=== PATIENT | male | born 1980 | race American Indian/Alaskan Native ===

== ENCOUNTER 2017-02-15 20:03 | Observation (INO) | payer MEDICAID, OTHER ==
[2017-02-15 20:03] VITALS: BMI 23.0
[2017-02-15] MEDS ORDERED: Multivitamin (MVI) 10 ML, Thiamine 100 MG, Folic Acid 1 MG in Sodium Chloride 0.9% 1,00... IV ONE (20:28)
--- NOTE | 2017-02-15 20:28 | ED PDOC ---
Arrival/HPI - General Historian: Patient - History of Present Illness Time/Duration: 1 week Context: Home <Thomas Fragoso - Last Filed: 02/15/17 23:57> <Elmer Jacques - Last Filed: 02/16/17 06:49> - General Chief Complaint: Alcohol Ingestion Time Seen by Provider: 02/15/17 20:25 - History of Present Illness Narrative History of Present Illness (Text): 02/15/17 20:28 This 36 yo male with pmh alcohol abuse, presents to this ED c/o nausea, vomiting x 1 day. Patient stated he started abusing alcohol x 7 days. Denies rectal bleeding, or hematemesis. Patient denies SI, HI, hallucination or paranoia. (Thomas Fragoso) Past Medical History - Provider Review Nursing Documentation Reviewed: Yes - Infectious Disease Hx of Infectious Diseases: None - Tetanus Immunization Tetanus Immunization: Unknown - Past Medical History Past Medical History: No Previous - Cardiac Hx Hypertension: Yes - Pulmonary Hx Tuberculosis: No - Neurological Hx Seizures: No - HEENT Hx HEENT Disorder: No - Renal Hx Renal Disorder: No - Endocrine/Metabolic Hx Endocrine Disorders: No - Hematological/Oncological Hx Cancer: No - Integumentary Hx Dermatological Disorder: No - Musculoskeletal/Rheumatological Hx Falls: No - Gastrointestinal Hx Gastrointestinal Disorders: No - Genitourinary/Gynecological Hx Sexually Transmitted Diseases: No - Psychiatric Hx Anxiety: Yes Hx Substance Use: No - Surgical History Hx Appendectomy: Yes - Anesthesia Hx Anesthesia: Yes Hx Anesthesia Reactions: No Hx Malignant Hyperthermia: No - Suicidal Assessment Feels Threatened In Home Enviroment: No <Thomas Fragoso - Last Filed: 02/15/17 23:57> Family/Social History - Physician Review Nursing Documentation Reviewed: Yes Family/Social History: No Known Family HX Smoking Status: Never Smoked Hx Alcohol Use: No (history of daily etoh/recent relapse) Hx Substance Use: No Hx Substance Use Treatment: No <Thomas Fragoso - Last Filed: 02/15/17 23:57> Allergies/Home Meds <Thomas Fragoso - Last Filed: 02/15/17 23:57> <Elmer Jacques - Last Filed: 02/16/17 06:49> Allergies/Adverse Reactions: Allergies No Known Allergies Allergy (Verified 02/15/17 20:16) Home Medications: Home Meds Medication Instructions Recorded Confirmed Cholecalciferol (Vitamin D3) 2,000 unit PO DAILY 01/17/17 02/15/17 [Vitamin D3] Cyanocobalamin [Vitamin B12 100 100 mcg PO DAILY 01/17/17 02/15/17 mcg Tab] Review of Systems - Review of Systems Constitutional: Normal. absent: Fatigue, Weight Change, Fevers Eyes: Normal ENT: Normal Respiratory: Normal. absent: SOB, Cough Cardiovascular: Normal. absent: Chest Pain, Palpitations Gastrointestinal: Nausea, Vomiting. absent: Abdominal Pain, Constipation, Diarrhea Genitourinary Male: Normal Musculoskeletal: Normal Skin: Normal Neurological: Normal Endocrine: Normal Hemo/Lymphatic: Normal Psychiatric: Normal <Thomas Fragoso P - Last Filed: 02/15/17 23:57> Vital Signs Temp Pulse Resp BP Pulse Ox 02/16/17 05:54 98.2 F 76 15 124/80 100 02/16/17 04:30 97.9 F 78 16 118/74 100 02/15/17 22:05 98 F 85 18 132/78 100 Medical Decision Making <Thomas Fragoso - Last Filed: 02/15/17 23:57> Re-evaluation Time: 06:45 Reassessment Condition: Re-examined, Improved <Elmer Jacques - Last Filed: 02/16/17 06:49> ED Course and Treatment: 02/15/17 22:41 (Thomas Fragoso P) - Medication Orders Current Medication Orders: Discontinued Medications Multivitamins/Vitamin C 10 ml/Thiamine HCl 100 mg/ Folic Acid 1 mg/ Sodium Chloride 1,011.2 mls @ 1,000 mls/hr IV .Q1H1M ONE Stop: 02/15/17 21:28 Last Admin: 02/15/17 21:40 Dose: 1,000 MLS/HR eMAR Start Stop Document 02/15/17 21:40 ELVIS (Rec: 02/15/17 21:41 ELVIS [id number]) Intravenous Solution Start Date 02/15/17 Start Time 20:45 End Date 02/15/17 End time 21:45 Total Infusion Time 60 Lorazepam (Ativan) 2 mg IVP ONCE ONE PRN Reason: Protocol Stop: 02/15/17 23:06 Last Admin: 02/15/17 23:37 Dose: 2 MG Behavioural Document 02/15/17 23:37 [facility] (Rec: 02/15/17 23:38 [id number] Maintenance Maintenance Dose No Nonmedicinal Nonmedicinal Interventions Activity Behavior Behavior for Medication: Anxiety IVP Administration Document 02/15/17 23:37 [facility] (Rec: 02/15/17 23:38 [id number] Charges for Administration # of IVP Administrations 1 Ondansetron HCl (Zofran Inj) 4 mg IVP STAT STA Stop: 02/15/17 20:30 Last Admin: 02/15/17 21:03 Dose: 4 MG IVP Administration Document 02/15/17 21:03 [facility] (Rec: 02/15/17 21:03 [id number] Charges for Administration # of IVP Administrations 1 Ondansetron HCl (Zofran Inj) 4 mg IVP STAT STA Stop: 02/15/17 23:06 Last Admin: 02/15/17 23:36 Dose: 4 MG IVP Administration Document 02/15/17 23:36 [facility] (Rec: 02/15/17 23:37 [id number]) Charges for Administration # of IVP Administrations 1 Ondansetron HCl (Zofran Inj) 4 mg IVP STAT STA Stop: 02/16/17 02:30 Last Admin: 02/16/17 06:10 Dose: 4 MG IVP Administration Document 02/16/17 06:10 [facility] (Rec: 02/16/17 06:11 [id number]) Charges for Administration # of IVP Administrations 1 ED OBSERVATION Date of observation admission: 02/15/17 Time of observation admission: 20:30 <Fragoso,Nahim P - Last Filed: 02/15/17 23:57> Discharge: Yes <Elmer Jacques - Last Filed: 02/16/17 06:49> - Observation admission statement Patient is being placed in observation because:: Alcohol Intoxication (Fragoso,Nahim P) - Goals of Observation Goals of observation are:: Labs, IVF, revaluation (Fragoso,Nahim P) - PA / TANK CHARGER / Resident Statement MD/DO has reviewed & agrees with the documentation as recorded. <Elmer Jacques - Last Filed: 02/16/17 06:49> Disposition/Present on Arrival - Present on Arrival History of DVT/PE: No History of Uncontrolled Diabetes: No Urinary Catheter: No History of Decub. Ulcer: No History Surgical Site Infection Following: None <Thomas Fragoso - Last Filed: 02/15/17 23:57> - Present on Arrival Any Indicators Present on Arrival: No - Disposition Have Diagnosis and Disposition been Completed?: Yes Disposition Time: 06:48 <Elmer Jacques - Last Filed: 02/16/17 06:49> - Disposition Diagnosis: Alcohol dependence Disposition: HOME/ ROUTINE Patient Problems: Current Active Problems Problem Status Diagnosed Alcohol dependence Acute Condition: GOOD
[2017-02-15 21:12] LABS: HEMATOCRIT 45.9 % (42.0-52.0); MEAN CELL VOLUME 83.6 fL (80.0-105.0); MEAN CORPUSCULAR HEMOGLOBIN 30.4 pg (25.0-35.0); MEAN CORPUSCULAR HGB CONC 36.4 g/dl (31.0-37.0); MEAN PLATELET VOLUME 8.6 fl (7.0-11.0); PLATELET COUNT 278 10^3/uL (120.0-450.0); RED CELL DISTRIBUTION WIDTH 13.3 % (11.5-14.5); WHITE BLOOD COUNT 7.6 10^3/ul (4.5-11.0)
[2017-02-15 21:14] LABS: ADD MANUAL DIFF? YES
[2017-02-15 21:18] LABS: ALKALINE PHOSPHATASE 68 U/L (38-133); ALT/SGPT 46 U/L (7-56); AST/SGOT 96 U/L (15-59); BILIRUBIN,TOTAL 1.1 mg/dL (0.2-1.3); BLOOD UREA NITROGEN 14 mg/dL (7-21); CALCIUM 8.7 mg/dL (8.4-10.5); CARBON DIOXIDE 24 mmol/L (21-33); CHLORIDE 101 mmol/L (98-107); GFR AFRICAN-AMERICAN > 60; GLUCOSE,RANDOM 106 mg/dL (70-110); LIPASE 192 U/L (23-300); SODIUM 144 mmol/L (132-148); TOTAL PROTEIN 8.5 g/dL (5.8-8.3)
[2017-02-15 21:19] LABS: POTASSIUM 4.5 mmol/L (3.6-5.0)
[2017-02-15 22:03] LABS: NEUTROPHIL 18 % (50.0-70.0); PLATELET ESTIMATE NORMAL (NORMAL)
[2017-02-15 22:06] VITALS: O2SAT 100
[2017-02-16 05:54] VITALS: BP 124/80; PULSE 76; RESP 15; TEMP 98.2
== END 2017-02-16 06:59 | disposition home or self-care (01) ==
LOC: ED 20:03 → EROBSV 20:30
PROVIDERS: ADMIT Emergency Medicine; ATTEND Emergency Medicine
DX: F10.20 Alcohol dependence, uncomplicated (principal); Y90.8 Blood alcohol level of 240 mg/100 ml or more; I10 Essential (primary) hypertension
CPT/HCPCS: 80053; 80320; 83690; 85025; 96365; 96375; 96376; 99283; G0378; J2060; J2405; J3411; J7040

== ENCOUNTER 2017-02-24 10:32 | Emergency (ER) | payer OTHER ==
[2017-02-24 10:33] VITALS: BMI 23.0
[2017-02-24 10:57] VITALS: TEMP 97.9
[2017-02-24] MEDS ORDERED: Sodium Chloride 0.9% 1,000 ML IV STA (11:11)
--- NOTE | 2017-02-24 11:14 | ED PDOC ---
Arrival/HPI - General Chief Complaint: Abdominal Pain Time Seen by Provider: 02/24/17 11:02 Historian: Patient - History of Present Illness Narrative History of Present Illness (Text): 02/24/17 11:08 A 36 year old male, whose past medical history includes alcohol abuse, presents to the emergency department complaining of left flank pain radiating to the left lower abdominal quadrant that began 3 days ago. Pain is associated with hiccups, nausea, vomiting and dysuira. He denies any fever, chest pain, shortness of breath, other other complaints at this time. Patient admits to drinking last night. PMD: Dr. Joseph Time/Duration: Other (3 days) Symptom Onset: Sudden Symptom Course: Unchanged Quality: Other ("pain") Activities at Onset: Rest Modifying Factors (Text): none Context: Home Associated Symptoms (Text): hiccups, nausea, vomiting, and dysuria. Past Medical History - Provider Review Nursing Documentation Reviewed: Yes - Infectious Disease Hx of Infectious Diseases: None - Tetanus Immunization Tetanus Immunization: Unknown - Past Medical History Past Medical History: No Previous - Cardiac Hx Cardiac Disorders: Yes Hx Hypertension: Yes - Pulmonary Hx Respiratory Disorders: No Hx Tuberculosis: No - Neurological Hx Neurological Disorder: No Hx Seizures: No - HEENT Hx HEENT Disorder: No - Renal Hx Renal Disorder: Yes Hx Renal Failure: Yes - Endocrine/Metabolic Hx Endocrine Disorders: No - Hematological/Oncological Hx Blood Disorders: No Hx Cancer: No - Integumentary Hx Dermatological Disorder: No - Musculoskeletal/Rheumatological Hx Falls: No - Gastrointestinal Hx Gastrointestinal Disorders: Yes - Genitourinary/Gynecological Hx Genitourinary Disorders: No Hx Sexually Transmitted Diseases: No - Psychiatric Hx Psychophysiologic Disorder: Yes Hx Anxiety: Yes Hx Substance Use: No - Surgical History Hx Appendectomy: Yes Hx Gastric Bypass Surgery: Yes Other/Comment: hernia - Anesthesia Hx Anesthesia: Yes Hx Anesthesia Reactions: No Hx Malignant Hyperthermia: No - Suicidal Assessment Feels Threatened In Home Enviroment: No Family/Social History - Physician Review Nursing Documentation Reviewed: Yes Family/Social History: Unknown Family HX Smoking Status: Never Smoked Hx Alcohol Use: Yes Frequency of alcohol use: Daily Hx Substance Use: No Hx Substance Use Treatment: No Allergies/Home Meds Allergies/Adverse Reactions: Allergies sesame seed Allergy (Verified 02/24/17 10:54) ANAPHYLAXIS hummus Allergy (Uncoded 02/24/17 10:54) ANAPHYLAXIS Home Medications: Home Meds Medication Instructions Recorded Confirmed Dicyclomine [Bentyl] 10 mg PO BID 02/24/17 02/24/17 Review of Systems - Physician Review All systems were reviewed & negative as marked: Yes - Review of Systems Constitutional: absent: Fevers Gastrointestinal: Abdominal Pain, Nausea, Other (hiccups). absent: Vomiting Genitourinary Male: Dysuria Musculoskeletal: Back Pain (left flank) Physical Exam Vital Signs Reviewed: Yes Vital Signs Temp Pulse Resp BP Pulse Ox 02/24/17 12:33 91 H 16 110/63 96 02/24/17 10:54 97.9 F 92 H 17 109/69 98 Temperature: Afebrile Blood Pressure: Normal Pulse: Regular Respiratory Rate: Normal Appearance: Positive for: Well-Appearing, Non-Toxic, Comfortable Pain Distress: None Mental Status: Positive for: Alert and Oriented X 3 - Systems Exam Head: Present: Atraumatic, Normocephalic Pupils: Present: PERRL Extroacular Muscles: Present: EOMI Conjunctiva: Present: Normal Mouth: Present: Moist Mucous Membranes Neck: Present: Normal Range of Motion Respiratory/Chest: Present: Clear to Auscultation, Good Air Exchange. No: Respiratory Distress, Accessory Muscle Use Cardiovascular: Present: Regular Rate and Rhythm, Normal S1, S2. No: Murmurs Abdomen: Present: Normal Bowel Sounds. No: Tenderness, Distention, Peritoneal Signs, Rebound, Guarding Back: Present: CVA Tenderness (left) Upper Extremity: Present: Normal Inspection. No: Cyanosis, Edema Lower Extremity: Present: Normal Inspection. No: Edema Neurological: Present: GCS=15, CN II-XII Intact, Speech Normal Skin: Present: Warm, Dry, Normal Color. No: Rashes Psychiatric: Present: Alert, Oriented x 3, Normal Insight, Normal Concentration Medical Decision Making ED Course and Treatment: 02/24/17 11:08 Impression: A 36 year old male with left flank pain. Differential Diagnosis include but are not limited to: nephrolithiasis vs uti pyelo sv gastritis. Plan: -- Abdomen/Pelvis CT -- Labs -- Urinalysis -- Thorazine and IV Fluids -- Reassess and disposition Prior Visits: Notes and results from previous visits were reviewed. The patient last presented to the emergency department on 02/15/17 for evaluation of nausea and vomiting. Progress Notes: 02/24/17 12:50 Abdomen/Pelvis CT: Creator : Mahin Matos MD COMPARISON: 09/08/2013 and 12/14/2015 FINDINGS: LOWER THORAX: Suture lines are seen in the stomach LIVER: Unremarkable. No gross lesion or ductal dilatation. GALLBLADDER AND BILE DUCTS: Unremarkable. PANCREAS: Unremarkable. No gross lesion or ductal dilatation. SPLEEN: Unremarkable. ADRENALS: Unremarkable. No mass. 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 There are no stones visualized. VASCULATURE: Unremarkable. No aortic aneurysm. BOWEL: Unremarkable. No obstruction. No gross mural thickening. APPENDIX: Unremarkable. Normal appendix. PERITONEUM: Unremarkable. No free fluid. No free air. LYMPH NODES: Unremarkable. No enlarged lymph nodes. BLADDER: Unremarkable. REPRODUCTIVE: Unremarkable. BONES: No acute fracture. OTHER FINDINGS: None. IMPRESSION: Chronic left UPJ obstruction. No evidence of renal or ureteral stones 02/24/17 14:59 pain resolved. pt on phone in [place]. due for surgery to left kidney [place] as per pt at [facility]. pt poor historian. cannot elaborate further on his procedure. h/h baseline. no reported gi bleeding. advise outpt f/u 02/24/17 15:02 hicups resolved in er. 02/24/17 15:18 - Lab Interpretations Lab Results: 02/24/17 11:20 02/24/17 11:20 Lab Results 02/24/17 14:24: Urine Color Light yellow, Urine Appearance Clear, Urine pH 6.0, Ur Specific [place] 1.010, Urine Protein Negative, Urine Glucose (UA) Negative, Urine Ketones Negative, Urine Blood Trace-intact H, Urine Nitrate Negative, Urine Bilirubin Negative, Urine Urobilinogen 0.2, Ur Leukocyte Esterase Negative , Urine RBC 0 - 2, Urine WBC 0 - 2, Ur Epithelial Cells 0 - 2, Urine Bacteria Neg 02/24/17 11:20: WBC 4.4 L D, RBC 4.21, Hgb 12.7 L, Hct 36.6 L, MCV 86.9, MCH 30.2, MCHC 34.7, RDW 14.0, Plt Count 193, MPV 9.0, Gran % 32.0 L, Lymph % (Auto ) 57.7 H, [place] % (Auto) 8.0 H, Eos % (Auto) 1.8, Baso % (Auto) 0.5, Gran # 1.40 , Lymph # 2.5, [place] # 0.4, Eos # 0.1, Baso # 0.02, PT 11.2, INR 1.04, APTT 27.3 , Sodium 141, Potassium 4.4, Chloride 103, Carbon Dioxide 27, Anion Gap 15, BUN 11, Creatinine 0.8, Est GFR ( Amer) > 60, Est GFR (Non-Af Amer) > 60, Random Glucose 95, Calcium 8.6, Total Bilirubin 0.3, AST 51, ALT 54, Alkaline Phosphatase 43, Total Protein 7.1, Albumin 3.7, Globulin 3.4, Albumin/Globulin Ratio 1.1, Lipase 154, Alcohol, Quantitative 137 H I have reviewed the lab results: Yes - RAD Interpretation Radiology Orders: 02/24/17 11:11 ABD & PELVIS W/O PO OR IV CONT [CT] Stat - Medication Orders Current Medication Orders: Discontinued Medications Chlorpromazine (Thorazine) 25 mg PO ONCE STA PRN Reason: Protocol Stop: 02/24/17 11:13 Last Admin: 02/24/17 11:40 Dose: 25 MG Behavioural Document 02/24/17 11:40 JOL (Rec: 02/24/17 11:40 JOL [id number]) Maintenance Maintenance Dose No Nonmedicinal Nonmedicinal Interventions Give food/fluids Behavior Behavior for Medication: Anxiety Behavior Comment hiccups Sodium Chloride (Sodium Chloride 0.9%) 1,000 mls @ 1,000 mls/hr IV .Q1H STA Stop: 02/24/17 12:10 Last Admin: 02/24/17 11:32 Dose: 1,000 MLS/HR eMAR Start Stop Document 02/24/17 11:32 JOL (Rec: 02/24/17 11:32 JOL [id number]) Intravenous Solution Start Date 02/24/17 Start Time 11:32 End Date 02/24/17 End time 12:32 Total Infusion Time 60 Morphine Sulfate (Morphine) 4 mg IVP STAT STA Stop: 02/24/17 11:27 Last Admin: 02/24/17 11:40 Dose: 4 MG MAR Pain Assessment Document 02/24/17 11:40 JOL (Rec: 02/24/17 11:40 JOL [id number]) Pain Reassessment Is this a pain reassessment? No Sleep Is patient sleeping during reassessment? No Presence of Pain Presence of Pain Yes Pain Scale Used Pain Scale Used Numeric Location Pain Location Body Site Abdomen Description Intensity of Pain at present 6 IVP Administration Document 02/24/17 11:40 JOL (Rec: 02/24/17 11:40 JOL [id number]) Charges for Administration # of IVP Administrations 1 - Scribe Statement The provider has reviewed the documentation as recorded by the Scribe Tha Hu Provider Scribe Attestation: All medical record entries made by the Scribe were at my direction and personally dictated by me. I have reviewed the chart and agree that the record accurately reflects my personal performance of the history, physical exam, medical decision making, and the department course for this patient. I have also personally directed, reviewed, and agree with the discharge instructions and disposition. Disposition/Present on Arrival - Present on Arrival Any Indicators Present on Arrival: No History of DVT/PE: No History of Uncontrolled Diabetes: No Urinary Catheter: No History of Decub. Ulcer: No History Surgical Site Infection Following: None - Disposition Have Diagnosis and Disposition been Completed?: Yes Diagnosis: Abdominal pain, Hiccups Disposition: HOME/ ROUTINE Disposition Time: 15:00 Patient Problems: Current Active Problems Problem Status Diagnosed Abdominal pain Acute Hiccups Acute Condition: STABLE Discharge Instructions (ExitCare): Hiccups (ED), Acute Abdominal Pain (ED), Abuse of Alcohol (ED) Additional Instructions: please follow up with your doctor. return to er with worsening symptoms or concerns Prescriptions: Famotidine [Pepcid] 20 mg PO DAILY #20 tab chlorproMAZINE [Thorazine] 25 mg PO TID PRN #6 tab PRN Reason: Hiccups Referrals: Jaison Joseph MD [Primary Care Provider] - Follow up with primary [facility] [Outside] - Follow up with primary [facility] [Outside] - Follow up with primary [facility] [Outside] - Follow up with primary
[2017-02-24] MEDS ORDERED: Morphine 4 mg/ml ISec IVP STA (11:26)
[2017-02-24 11:28] LABS: ADD MANUAL DIFF? NO
[2017-02-24 11:36] LABS: BASO # 0.02 K/mm3 (0.0-2.0); BASO % 0.5 % (0.0-3.0); EOS # 0.1 (0.0-0.7); EOS % 1.8 % (1.5-5.0); HEMATOCRIT 36.6 % (42.0-52.0); LYMPH # 2.5 (1.2-3.4); LYMPH % 57.7 % (22.0-35.0); MEAN CELL VOLUME 86.9 fL (80.0-105.0); MEAN CORPUSCULAR HEMOGLOBIN 30.2 pg (25.0-35.0); MEAN CORPUSCULAR HGB CONC 34.7 g/dl (31.0-37.0); MONO # 0.4 (0.1-0.6); PLATELET COUNT 193 10^3/uL (120.0-450.0); WHITE BLOOD COUNT 4.4 10^3/ul (4.5-11.0)
[2017-02-24 11:44] LABS: ALB/GLOB RATIO 1.1 (1.1-1.8); ALKALINE PHOSPHATASE 43 U/L (38-133); ALT/SGPT 54 U/L (7-56); AST/SGOT 51 U/L (15-59); BILIRUBIN,TOTAL 0.3 mg/dL (0.2-1.3); BLOOD UREA NITROGEN 11 mg/dL (7-21); CALCIUM 8.6 mg/dL (8.4-10.5); CARBON DIOXIDE 27 mmol/L (21-33); CHLORIDE 103 mmol/L (95-110); GFR AFRICAN-AMERICAN > 60; GLUCOSE,RANDOM 95 mg/dL (70-110); LIPASE 154 U/L (23-300); POTASSIUM 4.4 mmol/L (3.6-5.0); SODIUM 141 mmol/L (132-148); TOTAL PROTEIN 7.1 g/dL (5.8-8.3)
[2017-02-24 11:46] LABS: INR 1.04 (0.93-1.08); PARTIAL THROMBOPLASTIN TIME 27.3 Seconds (23.7-30.8)
--- NOTE | 2017-02-24 12:50 | CT ---
PROCEDURE: CT Abdomen and Pelvis without intravenous contrast HISTORY: left flank pain COMPARISON: 09/08/2013 and 12/14/2015 TECHNIQUE: Without contrast. Contrast Dose: Radiation dose: Total exam DLP = 804 mGy-cm. This CT exam was performed using one or more of the following dose reduction techniques: Automated exposure control, adjustment of the mA and/or kV according to patient size, and/or use of iterative reconstruction technique. FINDINGS: LOWER THORAX: Suture lines are seen in the stomach LIVER: Unremarkable. No gross lesion or ductal dilatation. GALLBLADDER AND BILE DUCTS: Unremarkable. PANCREAS: Unremarkable. No gross lesion or ductal dilatation. SPLEEN: Unremarkable. ADRENALS: Unremarkable. No mass. 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 There are no stones visualized. VASCULATURE: Unremarkable. No aortic aneurysm. BOWEL: Unremarkable. No obstruction. No gross mural thickening. APPENDIX: Unremarkable. Normal appendix. PERITONEUM: Unremarkable. No free fluid. No free air. LYMPH NODES: Unremarkable. No enlarged lymph nodes. BLADDER: Unremarkable. REPRODUCTIVE: Unremarkable. BONES: No acute fracture. OTHER FINDINGS: None. IMPRESSION: Chronic left UPJ obstruction. No evidence of renal or ureteral stones
[2017-02-24 14:44] LABS: URINE BILIRUBIN NEGATIVE (NEGATIVE); URINE BLOOD TRACE-INTACT (NEGATIVE); URINE GLUCOSE (UA) NEGATIVE (NEGATIVE); URINE KETONE NEGATIVE (NEGATIVE); URINE LEUKOCYTE ESTERASE NEGATIVE Leu/uL (NEGATIVE); URINE PROTEIN NEGATIVE mg/dL (<30 mg/dL); URINE UROBILINOGEN 0.2 E.U./dL (<1 E.U./dL)
[2017-02-24 14:45] LABS: URINE APPEARANCE CLEAR (CLEAR); URINE COLOR LIGHT YELLOW (YELLOW)
[2017-02-24 14:58] LABS: URINE BACTERIA NEG (NEG); URINE EPITHELIAL CELLS 0 - 2 /hpf (0-5); URINE RBC 0 - 2 /hpf (0-2); URINE WBC 0 - 2 /hpf (0-6)
[2017-02-24 16:14] VITALS: BP 120/63; PULSE 76; RESP 18; O2SAT 98
== END 2017-02-24 16:01 | disposition home or self-care (01) ==
LOC: ED 10:32
DX: R10.9 Unspecified abdominal pain (principal); R06.6 Hiccough; I10 Essential (primary) hypertension
CPT/HCPCS: 74176; 80053; 80320; 81001; 83690; 85025; 85610; 85730; 96361; 96374; 99284; J2270; J7040; Q0161

== ENCOUNTER 2017-03-06 17:52 | Inpatient (IN) | payer OTHER ==
[2017-03-06 18:14] VITALS: BMI 23.7
[2017-03-06] MEDS ORDERED: Sodium Chloride 0.9% 1,000 ML IV STA ×2 (18:26→21:22)
--- NOTE | 2017-03-06 18:55 | ED PDOC ---
Arrival/HPI - General Chief Complaint: Abdominal Pain Time Seen by Provider: 03/06/17 18:19 Historian: Patient - History of Present Illness Narrative History of Present Illness (Text): 03/06/17 18:41 36yo male with history of alcohol abuse present with complaint of LLQ abdominal pain with associated multiple episodes of nonbilious/bloody vomiting since last night. He notes that he last drank last night, but usually drink alcohol everyday. Report history of similar pain multiple times in the past. He denies diarrhea, constipation, hematemesis, hematochezia, fever, chills, any other complaint. He notes history of gastric bypass years ago. Past Medical History - Provider Review Nursing Documentation Reviewed: Yes - Infectious Disease Hx of Infectious Diseases: None - Tetanus Immunization Tetanus Immunization: Unknown - Past Medical History Past Medical History: No Previous - Cardiac Hx Cardiac Disorders: Yes Hx Hypertension: Yes - Pulmonary Hx Respiratory Disorders: No Hx Tuberculosis: No - Neurological Hx Neurological Disorder: No Hx Seizures: No - HEENT Hx HEENT Disorder: No - Renal Hx Renal Disorder: Yes Hx Renal Failure: Yes - Endocrine/Metabolic Hx Endocrine Disorders: No - Hematological/Oncological Hx Blood Disorders: No Hx Cancer: No - Integumentary Hx Dermatological Disorder: No - Musculoskeletal/Rheumatological Hx Falls: No - Gastrointestinal Hx Gastrointestinal Disorders: Yes - Genitourinary/Gynecological Hx Genitourinary Disorders: No Hx Sexually Transmitted Diseases: No - Psychiatric Hx Psychophysiologic Disorder: Yes Hx Anxiety: Yes Hx Substance Use: No - Surgical History Hx Appendectomy: Yes Hx Gastric Bypass Surgery: Yes Other/Comment: hernia - Anesthesia Hx Anesthesia: Yes Hx Anesthesia Reactions: No Hx Malignant Hyperthermia: No - Suicidal Assessment Feels Threatened In Home Enviroment: No Family/Social History - Physician Review Nursing Documentation Reviewed: Yes Family/Social History: Unknown Family HX Smoking Status: Never Smoked Hx Alcohol Use: Yes Hx Substance Use: No Hx Substance Use Treatment: No Allergies/Home Meds Allergies/Adverse Reactions: Allergies sesame seed Allergy (Verified 02/24/17 10:54) ANAPHYLAXIS hummus Allergy (Uncoded 02/24/17 10:54) ANAPHYLAXIS Home Medications: Home Meds Medication Instructions Recorded Confirmed Dicyclomine [Bentyl] 10 mg PO BID 02/24/17 02/24/17 Review of Systems - Physician Review All systems were reviewed & negative as marked: Yes - Review of Systems Constitutional: Normal Eyes: Normal ENT: Normal Respiratory: Normal Cardiovascular: Normal Gastrointestinal: Abdominal Pain, Nausea, Vomiting. absent: Constipation, Diarrhea, Hematochezia, Hematemesis Genitourinary Male: Normal Musculoskeletal: Normal Skin: Normal Neurological: Normal Endocrine: Normal Hemo/Lymphatic: Normal Psychiatric: Normal Physical Exam Vital Signs Reviewed: Yes Vital Signs Temp Pulse Resp BP Pulse Ox 03/06/17 18:18 98.5 F 136 H 18 124/87 98 03/06/17 18:13 98.5 F 136 H 20 124/87 98 Temperature: Afebrile Blood Pressure: Normal Pulse: Regular Respiratory Rate: Normal Appearance: Positive for: Well-Appearing, Non-Toxic, Comfortable Pain Distress: None Mental Status: Positive for: Alert and Oriented X 3 - Systems Exam Head: Present: Atraumatic, Normocephalic Pupils: Present: PERRL Extroacular Muscles: Present: EOMI Conjunctiva: Present: Normal Mouth: Present: Moist Mucous Membranes Neck: Present: Normal Range of Motion Respiratory/Chest: Present: Clear to Auscultation, Good Air Exchange. No: Respiratory Distress, Accessory Muscle Use Cardiovascular: Present: Regular Rate and Rhythm, Normal S1, S2. No: Murmurs Abdomen: Present: Tenderness (Left sided lower tenderness), Normal Bowel Sounds , Other (Soft). No: Distention, Peritoneal Signs, Rebound, Guarding, McBurney' s Point Tender, Rovsing's Sign Present Back: Present: Normal Inspection Upper Extremity: Present: Normal Inspection. No: Cyanosis, Edema Lower Extremity: Present: Normal Inspection. No: Edema Neurological: Present: GCS=15, CN II-XII Intact, Speech Normal Skin: Present: Warm, Dry, Normal Color. No: Rashes Psychiatric: Present: Alert, Oriented x 3, Normal Insight, Normal Concentration Medical Decision Making ED Course and Treatment: 03/06/17 21:20 Pt in ED for stated history. His pain is controlled in ED. Lab was reviewed with elevated Lipase and alcohol noted. Pt was admitted for Pancreatitis. Pt getting hydration in ED. Case was DW Dr. tabor and he accepted pt to his service. Requested Dr. Mendieta consult. - Lab Interpretations Lab Results: 03/06/17 18:50 03/06/17 18:50 Lab Results 03/06/17 18:52: Urine Color Yellow, Urine Appearance Sl cloudy, Urine pH 6.0, Ur Specific Bon[place] >= 1.030, Urine Protein 30 H, Urine Glucose (UA) 100 H, Urine Ketones Trace H, Urine Blood Moderate H, Urine Nitrate Negative, Urine Bilirubin Negative, Urine Urobilinogen 0.2, Ur Leukocyte Esterase Negative, Urine RBC 5 - 10, Urine WBC 0 - 2, Ur Epithelial Cells 0 - 2, Urine Bacteria Neg 03/06/17 18:50: WBC 9.5 D, RBC 5.34, Hgb 16.6, Hct 45.1, MCV 84.5, MCH 31.1, MCHC 36.8, RDW 14.7 H, Plt Count 265, MPV 8.7, Gran % 80.1 H, Lymph % (Auto) 16.5 L, Dyer % (Auto) 3.2, Eos % (Auto) 0.0 L, Baso % (Auto) 0.2, Gran # 7.63 H , Lymph # 1.6, Dyer # 0.3, Eos # 0.0, Baso # 0.02, PT 10.7, INR 0.99, APTT 27.8 , Sodium 136, Potassium 4.4, Chloride 96 L, Carbon Dioxide 20 L, Anion Gap 24 H , BUN 16, Creatinine 0.9, Est GFR ( Amer) > 60, Est GFR (Non-Af Amer) > 60, Random Glucose 173 H, Calcium 8.8, Total Bilirubin 0.8, AST 66 H, ALT 48, Alkaline Phosphatase 69, Total Protein 8.3, Albumin 4.0, Globulin 4.3, Albumin/ Globulin Ratio 0.9 L, Lipase 1017 H, Alcohol, Quantitative 249 H - Medication Orders Current Medication Orders: Discontinued Medications Famotidine (Pepcid) 20 mg IVP STAT STA Stop: 03/06/17 18:27 Last Admin: 03/06/17 19:02 Dose: 20 MG IVP Administration Document 03/06/17 19:02 OCS (Rec: 03/06/17 19:03 OCS [id number]) Charges for Administration # of IVP Administrations 1 Sodium Chloride (Sodium Chloride 0.9%) 1,000 mls @ 1,000 mls/hr IV .Q1H STA Stop: 03/06/17 19:25 Last Admin: 03/06/17 19:03 Dose: 1,000 MLS/HR eMAR Start Stop Document 03/06/17 19:03 OCS (Rec: 03/06/17 19:03 [id number]) Intravenous Solution Start Date 03/06/17 Start Time 19:03 Ketorolac Tromethamine (Toradol) 30 mg IVP STAT STA Stop: 03/06/17 19:02 Last Admin: 03/06/17 19:20 Dose: 30 MG IVP Administration Document 03/06/17 19:20 OCS (Rec: 03/06/17 19:20 [id number]) Charges for Administration # of IVP Administrations 1 Ondansetron HCl (Zofran Inj) 4 mg IVP STAT STA Stop: 03/06/17 18:27 Last Admin: 03/06/17 19:03 Dose: 4 MG IVP Administration Document 03/06/17 19:03 OCS (Rec: 03/06/17 19:03 [id number]) Charges for Administration # of IVP Administrations 1 Disposition/Present on Arrival - Present on Arrival Any Indicators Present on Arrival: No History of DVT/PE: No History of Uncontrolled Diabetes: No Urinary Catheter: No History of Decub. Ulcer: No History Surgical Site Infection Following: None - Disposition Have Diagnosis and Disposition been Completed?: Yes Diagnosis: Pancreatitis, Alcohol dependence Disposition: HOSPITALIZED Disposition Time: 19:50 Patient Problems: Current Active Problems Problem Status Diagnosed Pancreatitis Acute Condition: FAIR
[2017-03-06 18:57] LABS: URINE APPEARANCE SL CLOUDY (CLEAR); URINE BILIRUBIN NEGATIVE (NEGATIVE); URINE BLOOD MODERATE (NEGATIVE); URINE COLOR YELLOW (YELLOW); URINE GLUCOSE (UA) 100 mg/dL (NEGATIVE); URINE KETONE TRACE mg/dL (NEGATIVE); URINE LEUKOCYTE ESTERASE NEGATIVE Leu/uL (NEGATIVE); URINE PROTEIN 30 mg/dL (<30 mg/dL); URINE UROBILINOGEN 0.2 E.U./dL (<1 E.U./dL)
[2017-03-06 18:59] LABS: URINE BACTERIA NEG (NEG); URINE EPITHELIAL CELLS 0 - 2 /hpf (0-5); URINE WBC 0 - 2 /hpf (0-6)
[2017-03-06 19:02] LABS: ADD MANUAL DIFF? NO
[2017-03-06 19:17] LABS: ALB/GLOB RATIO 0.9 (1.1-1.8); ALKALINE PHOSPHATASE 69 U/L (38-133); ALT/SGPT 48 U/L (7-56); AST/SGOT 66 U/L (15-59); BILIRUBIN,TOTAL 0.8 mg/dL (0.2-1.3); BLOOD UREA NITROGEN 16 mg/dL (7-21); CALCIUM 8.8 mg/dL (8.4-10.5); CARBON DIOXIDE 20 mmol/L (21-33); CHLORIDE 96 mmol/L (98-107); GFR AFRICAN-AMERICAN > 60; GLUCOSE,RANDOM 173 mg/dL (70-110); LIPASE 1017 U/L (23-300); POTASSIUM 4.4 mmol/L (3.6-5.0); SODIUM 136 mmol/L (132-148); TOTAL PROTEIN 8.3 g/dL (5.8-8.3)
[2017-03-06 19:24] LABS: BASO # 0.02 K/mm3 (0.0-2.0); BASO % 0.2 % (0.0-3.0); GRAN # 7.63 (1.4-6.5); GRAN % 80.1 % (50.0-68.0); HEMATOCRIT 45.1 % (42.0-52.0); LYMPH # 1.6 (1.2-3.4); LYMPH % 16.5 % (22.0-35.0); MEAN CELL VOLUME 84.5 fL (80.0-105.0); MEAN CORPUSCULAR HEMOGLOBIN 31.1 pg (25.0-35.0); MEAN CORPUSCULAR HGB CONC 36.8 g/dl (31.0-37.0); MEAN PLATELET VOLUME 8.7 fl (7.0-11.0); MONO # 0.3 (0.1-0.6); MONO % 3.2 % (1.0-6.0); PLATELET COUNT 265 10^3/uL (120.0-450.0); RED CELL DISTRIBUTION WIDTH 14.7 % (11.5-14.5); WHITE BLOOD COUNT 9.5 10^3/ul (4.5-11.0)
[2017-03-06 19:25] LABS: INR 0.99 (0.93-1.08); PARTIAL THROMBOPLASTIN TIME 27.8 Seconds (23.7-30.8)
--- NOTE | 2017-03-06 23:56 | CP.PCM.PN ---
Subjective - Date & Time of Evaluation Date of Evaluation: 03/06/17 Time of Evaluation: 23:55 - Subjective Subjective: Patient was seen at bedside.He complained of abdominal pain, sharp across upper abdomen, no radiation. Has little nausea, no vomiting. States that he is very thirsty. No other complaints. Denies chest pain, sob, sweating, palpitation. This 36 year old male was admitted with LLQ pain, vomiting, ETOH intoxication,elevated lipase. Has PMH of HTN, renal failure, Pancreatitis,ETOH withdrawal, ruptured appendix. Objective - Vital Signs/Intake and Output Vital Signs (last 24 hours): Temp Pulse Resp BP Pulse Ox 98.5 F 103 H 18 132/89 97 03/06/17 18:18 03/06/17 21:00 03/06/17 21:00 03/06/17 21:00 03/06/17 21:00 - Labs Labs: PT 10.7 Seconds (9.9-11.8) 03/06/17 18:50 INR 0.99 (0.93-1.08) 03/06/17 18:50 APTT 27.8 Seconds (23.7-30.8) 03/06/17 18:50 - Constitutional Appears: Well, No Acute Distress - Head Exam Head Exam: ATRAUMATIC, NORMAL INSPECTION, NORMOCEPHALIC - Eye Exam Eye Exam: Normal appearance - ENT Exam ENT Exam: Normal External Ear Exam - Neck Exam Neck Exam: Normal Inspection - Respiratory Exam Respiratory Exam: Clear to Ausculation Bilateral, NORMAL BREATHING PATTERN. absent: Accessory Muscle Use, Rales, Rhonchi, Wheezes, Respiratory Distress, Stridor - GI/Abdominal Exam GI & Abdominal Exam: Soft (YEs.), Tenderness (Mild upper abdominal tenderness positive.), Normal Bowel Sounds. absent: Firm, Guarding, Rigid, Organomegaly, Pulsatile Mass, Rebound - Rectal Exam Rectal Exam: Deferred - Extremities Exam Extremities Exam: Normal Inspection - Back Exam Back Exam: NORMAL INSPECTION - Neurological Exam Neurological Exam: Alert, Oriented x3 - Psychiatric Exam Psychiatric exam: Normal Affect, Normal Mood - Skin Skin Exam: Dry Assessment and Plan - Assessment and Plan (Free Text) Assessment: A/P:Abdominal pain-UpPer. Vomiting. ETOH. Pancreatitis. Toradol 30 mg IV stat. Continue present management.
[2017-03-07] MEDS ORDERED: Sodium Chloride 0.9% 1,000 ML IV SCH (03:30)
[2017-03-07] MEDS ORDERED: HYDROmorphone 0.5 mg/0.5 ml ISec IVP PRN (05:11)
--- NOTE | 2017-03-07 05:49 | CP.PCM.CON ---
History of Present Illness - History of Present Illness History of Present Illness: Surgery consult 36yo male with history of Pancreatitis, alcohol abuse, L hydronephrosis, appendectomy, gastric bypass, hernia repair present with complaint of LLQ abdominal pain with associated multiple episodes of nonbilious/bloody vomiting since last night. He notes that he last drank last night, but usually drink alcohol everyday. Report history of similar pain multiple times in the past. He also resports anorexia, diarrhea and dysuria. Denies constipation, hematemesis , hematochezia, fever, chills, hematuria, any other complaint. Review of Systems - Review of Systems Review of Systems: see HPI Past Patient History - Infectious Disease Hx of Infectious Diseases: None - Tetanus Immunizations Tetanus Immunization: Unknown - Past Medical History & Family History Past Medical History?: Yes - Past Social History Smoking Status: Never Smoked - CARDIAC Hx Cardiac Disorders: Yes Hx Hypertension: Yes - PULMONARY Hx Respiratory Disorders: No Hx Tuberculosis: No - NEUROLOGICAL Hx Neurological Disorder: No Hx Seizures: No - HEENT Hx HEENT Problems: No - RENAL Hx Chronic Kidney Disease: Yes Hx Renal Failure: Yes - ENDOCRINE/METABOLIC Hx Endocrine Disorders: No - HEMATOLOGICAL/ONCOLOGICAL Hx Blood Disorders: No Hx Cancer: No - INTEGUMENTARY Hx Dermatological Problems: No - MUSCULOSKELETAL/RHEUMATOLOGICAL Hx Falls: No - GASTROINTESTINAL Hx Gastrointestinal Disorders: Yes - GENITOURINARY/GYNECOLOGICAL Hx Genitourinary Disorders: No Hx Sexually Transmitted Disorders: No - PSYCHIATRIC Hx Psychophysiologic Disorder: Yes Hx Anxiety: Yes - SURGICAL HISTORY Hx Appendectomy: Yes Hx Gastric Bypass Surgery: Yes Other/Comment: hernia - ANESTHESIA Hx Anesthesia: Yes Hx Anesthesia Reactions: No Hx Malignant Hyperthermia: No Meds Allergies/Adverse Reactions: Allergies Allergy/AdvReac Type Severity Reaction Status Date / Time sesame seed Allergy ANAPHYLAXIS Verified 02/24/17 10:54 hummus Allergy ANAPHYLAXIS Uncoded 02/24/17 10:54 - Medications Medications: Current Medications Acetaminophen (Tylenol 325mg Tab) 650 mg PO Q4H PRN PRN Reason: Fever >100.4 F Hydromorphone HCl (Dilaudid) 0.5 mg IVP Q6H PRN PRN Reason: Pain, severe (8-10) Sodium Chloride (Sodium Chloride 0.9%) 1,000 mls @ 100 mls/hr IV .Q10H ANEESH Lactated Ringer's (Lactated Ringer's) 1,000 mls @ 250 mls/hr IV .Q4H [facility] Ondansetron HCl (Zofran Inj) 4 mg IVP Q4H PRN PRN Reason: Nausea/Vomiting Pantoprazole Sodium (Protonix Inj) 40 mg IVP DAILY [facility] Physical Exam - Constitutional Appears: No Acute Distress - Head Exam Head Exam: ATRAUMATIC, NORMAL INSPECTION, NORMOCEPHALIC - Eye Exam Eye Exam: EOMI, Normal appearance, PERRL Pupil Exam: NORMAL ACCOMODATION, PERRL - ENT Exam ENT Exam: Mucous Membranes Moist, Normal Exam - Neck Exam Neck exam: Positive for: Normal Inspection - Respiratory Exam Respiratory Exam: Clear to Auscultation Bilateral, NORMAL BREATHING PATTERN. absent: Accessory Muscle Use, Respiratory Distress - Cardiovascular Exam Cardiovascular Exam: REGULAR RHYTHM - GI/Abdominal Exam GI & Abdominal Exam: Soft, Tenderness. absent: Distended, Firm, Guarding, Hernia, Rebound, Rigid Additional comments: low transverse scar well healed. TTP on Low abd and L back - Extremities Exam Extremities exam: Positive for: full ROM, normal inspection - Back Exam Back exam: NORMAL INSPECTION - Neurological Exam Neurological exam: Alert, CN II-XII Intact, Normal Gait, Oriented x3, Reflexes Normal - Psychiatric Exam Psychiatric exam: Normal Affect, Normal Mood - Skin Skin Exam: Dry, Intact, Normal Color, Warm Results - Vital Signs Recent Vital Signs: Last Vital Signs Temp 97.8 F 03/07/17 00:29 Pulse 105 H 03/07/17 00:29 Resp 20 03/07/17 00:29 BP 172/111 H 03/07/17 00:29 Pulse Ox 97 03/06/17 21:00 - Labs Result Diagrams: 03/06/17 18:50 03/06/17 18:50 Assessment & Plan - Assessment and Plan (Free Text) Assessment: r/o gallstone pancreatitis v sbo Lipase 1000 -f/u US abd -LR 250 -NPO -Zofran -PTX -Pain control Will DW Dr. Mendieta
[2017-03-07] MEDS: Lactated Ringer's 1,000 ML IV SCH ×4 (07:58→18:08)
--- NOTE | 2017-03-07 08:26 | US ---
HISTORY: r/o gallstone pancreatitis COMPARISON: CT of the abdomen and pelvis without oral or IV contrast performed 02/24/17 TECHNIQUE: Sonographic evaluation of the abdomen. FINDINGS: Examination markedly limited due to habitus. LIVER: Measures measures approximately 18.1 x 9.5 x 11.3 cm. Echogenic liver may be seen in setting of hepatic parenchymal disease or fatty infiltration. No focal hepatic mass identified. The main portal vein appears patent with normal directional flow. No intrahepatic bile duct dilatation. GALLBLADDER: No gallstones. No gallbladder wall thickening. Negative sonographic Archer's sign as assessed by the bin tripper operator. COMMON BILE DUCT: Measures 6 mm. PANCREAS: Not well visualized. RIGHT KIDNEY: Measures 11.8 x 4.8 x 4.7cm. No obstructing calculus or hydronephrosis identified. LEFT KIDNEY: Measures 14.6 x 7.1 x 7.1cm. Dilated calices/hydronephrosis. No obstructing calculus identified. SPLEEN: Measures approximately 8.7 cm. AORTA: Not well-visualized. IVC: Not well-visualized. OTHER FINDINGS: None. IMPRESSION: Examination markedly limited by habitus. Echogenic liver may be seen in setting of hepatic parenchymal disease or fatty infiltration. Dilated calices/hydronephrosis of the left kidney. No obstructing calculus identified.
[2017-03-07] MEDS ORDERED: Thiamine 100 mg/ml Inj IV ONE (10:45)
[2017-03-07] MEDS ORDERED: Thiamine 100 mg/ml Inj IM SCH (10:45)
--- NOTE | 2017-03-07 10:49 | CON ---
DATE: 03/07/2017 REQUESTING PHYSICIAN: Dr. Joseph. REASON FOR CONSULTATION: I have been asked to see this 36-year-old alcoholic male [facility] mid abdominal pain associated with nausea and vomiting. The patient states that he has been an alcoholic for many years, consuming up to a bottle of wine on a daily basis. The patien t has a history of alcohol-induced pancreatitis as well as gastric bypass in the past. He denies any fevers, chills, hematemesis, melena, rectal bleeding. PAST MEDICAL HISTORY: Notable for alcoholism, pancreatitis, hypertension, left hydronephrosis. PAST SURGICAL HISTORY: Notable for gastric bypass, appendectomy. SOCIAL HISTORY: He is an alcoholic, drinking up to a bottle of wine on a daily basis. REVIEW OF SYSTEMS: A 14-point review of systems is notable for left mid abdominal pain, nausea, vomi ting. PHYSICAL EXAMINATION: GENERAL: Well-developed male appearing tremulous, lying in bed, in no acute distress. VITAL SIGNS: Reveal temperature of 98.2, blood pressure 135/93, heart rate 96. HEENT: Reveals sclerae to be white, conjunctivae pink. NECK: Supple. CHEST: Reveals lungs to be clear. HEART: Reveals regular rate and rhythm. ABDOMEN: Soft, mild mid abdominal tenderness. No rebound, no guarding. EXTREMITIES: Show no edema. LABORATORY DATA: Reveal white blood cell count 9.5, hemoglobin 16.6. Chemistries reveal a lipase of 1017, AST 66, ALT 48. Toxicology shows blood alcohol level of 249 on admission to the hospital. Ul trasound of the abdomen shows no gallstones. There is hydronephrosis of the left kidney with no obvi ous calculi seen. He does have echogenic liver consistent with fatty liver. IMPRESSION: A 36-year-old male alcoholic admitted to the hospital with abdominal pain, nausea, vomit ing, found to have elevated lipase consistent with acute pancreatitis. RECOMMENDATIONS: 1. Continue IV fluids. Follow serum amylase and lipase. Continue morphine for pain management. 2. Continue close observation for alcohol withdrawal. Elmer Sow MD cc: [id number] TT: 03/07/2017 10:48:26 Confirmation # [id number] Dictation # [id number]
[2017-03-07] MEDS ORDERED: Thiamine 100 MG in Sodium Chloride 0.9% 50 ML IV ONE (11:00)
[2017-03-07] MEDS ORDERED: Thiamine 100 MG in Sodium Chloride 0.9% 50 ML IM ONE (11:00)
[2017-03-07] MEDS: Morphine 4 mg/ml ISec IVP PRN ×3 (12:26→21:38)
[2017-03-07 16:39] VITALS: RESP 20
[2017-03-07] MEDS ORDERED: Lactated Ringer's 1,000 ML IV SCH (19:50)
--- NOTE | 2017-03-07 20:12 | HP ---
CHIEF COMPLAINT AND HISTORY OF PRESENT ILLNESS: This is a 36-year-old male [facility] of left lower quadrant pain and stated it was associated with multiple episode s of nonbilious vomiting that started last night. He says he has been , his last drink was last night. He does drink daily. He has had similar episodes multiple times in the past. He denies any diarrhea or constipation. He says he has been an alcoholic for many years. He says he is feeling b janu, but continues to have pain, but it does improve with his pain medications. He has no chest pa in or shortness of breath, no weakness in the arms or the legs. REVIEW OF SYSTEMS: All other review of symptoms are within normal limits except as mentioned. ALLERGIES: SESAME. HOME MEDICATIONS: Bentyl. SOCIAL HISTORY: He drinks daily, mostly wine. No smoking. PAST SURGICAL HISTORY: He had had gastric bypass and appendectomy. PHYSICAL EXAMINATION: VITAL SIGNS: Temperature 98.6, pulse of 93, blood pressure 127/84, respirations 20, O2 saturation 97 %. Height is 5 feet 11, weight is 170 pounds, BMI is 23.7. GENERAL: Patient lying in bed, flat, and in no apparent distress. HEAD AND NECK EXAM: Atraumatic, normocephalic. Conjunctivae are pink. Throat clear and mouth with moist mucosa. Oropharynx benign. EYES: Extraocular movements are intact. PERRLA. NECK: Supple. No JVD, thyromegaly, or adenopathy. No bruits. HEART: S1 and S2 regular rate and rhythm. No murmurs, rubs, or gallops. LUNGS: Clear to auscultation bilaterally. No wheezing rales or rhonchi appreciated. No retraction s on exam. ABDOMEN: Bowel sounds are positive, soft. There is tenderness in the epigastric area and I the per iumbilical area. No rebound or guarding. He has a transverse scar that is well healed on the abdome n EXTREMITIES: No cyanosis, clubbing, or edema. NEURO: No facial asymmetry, tongue is midline, no uvula deviation. Power is 5/5 in upper extremity and 5/5 in lower extremity. Sensation is normal in upper extremity and lower extremity. PSYCH: Awake, alert, oriented x3. No anxiety or depression symptoms. Good insight. Normal affec t. : No CVA tenderness VASCULAR: 2+ pulses in carotid and pedal pulses. SKIN: No erythema or abnormal nodules noted. SPINE: Normal curvature. LYMPHADENOPATHY: No anterior cervical or posterior cervical adenopathy. No inguinal adenopathy. LABORATORY DATA: White count of 9.5, hemoglobin is 16.6, platelets 265. INR is 0.9. He had a chemi stry that shows a sodium 136, potassium is 4.4, creatinine is 0.9. AST and ALT is 66 and 48. His li pase is 1017. Urine shows ketones are trace, blood is moderate, nitrites are negative. Alcohol is 2 49. He had abdominal ultrasound that was done that shows echogenic liver from hepatic parenchymal di sease. There are dilated calyces and hydronephrosis on the left kidney. No obstructing calculus. ASSESSMENT: 1. Acute pancreatitis. 2. Alcoholism. 3. Left-sided hydronephrosis. 4. Renal cyst. PLAN: The patient is admitted to the hospital. He has been placed on IV fluids. The patient is goi ng to be on pain medications with morphine. He did not like the Dilaudid he was on. He was seen by GI and surgery. I appreciate their input. He is on Protonix. Will have to watch the patient for al cohol withdrawal. Will repeat blood work tomorrow and also get a serology. He has been having vague abdominal pain for the past few months, rule out autoimmune induced illness. Jaison Joseph MD cc: [id number] TT: 03/07/2017 20:11:36 [email or web address]
--- NOTE | 2017-03-07 23:29 | CP.PCM.PN ---
Subjective - Date & Time of Evaluation Date of Evaluation: 03/07/17 Time of Evaluation: 23:27 - Subjective Subjective: S:Patient was seen at bedside because he requested a sleeping pill. Has no other acute complaints now. Denies chest pain, sob. Pertinent medical record was reviewed. O:VSS. Last Vital Signs 3 Temp 98.6 F 03/07/17 16:00 Pulse 93 H 03/07/17 16:00 Resp 20 03/07/17 16:00 BP 127/84 03/07/17 16:00 Pulse Ox 97 03/07/17 16:00 Awake, alert, not in distress. LUNGS:Normal breathing pattern. NEURO:Speech normal. A:Insomnia-adjustment. P:Benadryl 50 mg PO x1. Objective - Vital Signs/Intake and Output Vital Signs (last 24 hours): Temp Pulse Resp BP Pulse Ox 98.6 F 93 H 20 127/84 97 03/07/17 16:00 03/07/17 16:00 03/07/17 16:00 03/07/17 16:00 03/07/17 16:00 Intake and Output: 03/07/17 03/08/17 18:59 06:59 Intake Total 3000 Output Total 1000 400 Balance 2000 -400 - Medications Medications: Current Medications Acetaminophen (Tylenol 325mg Tab) 650 mg PO Q4H PRN PRN Reason: Fever >100.4 F Lactated Ringer's (Lactated Ringer's) 1,000 mls @ 100 mls/hr IV .Q10H ANEESH Last Admin: 03/07/17 21:39 Dose: 100 mls/hr Lorazepam (Ativan) 2 mg IVP Q6H PRN; Protocol PRN Reason: Anxiety Last Admin: 03/07/17 09:38 Dose: 2 mg Morphine Sulfate (Morphine) 4 mg IVP Q4H PRN PRN Reason: Pain, severe (8-10) Last Admin: 03/07/17 21:38 Dose: 4 mg Ondansetron HCl (Zofran Inj) 4 mg IVP Q4H PRN PRN Reason: Nausea/Vomiting Last Admin: 03/07/17 21:38 Dose: 4 mg Pantoprazole Sodium (Protonix Inj) 40 mg IVP DAILY ANEESH Last Admin: 03/07/17 09:38 Dose: 40 mg - Labs Labs: PT 10.7 Seconds (9.9-11.8) 03/06/17 18:50 INR 0.99 (0.93-1.08) 03/06/17 18:50 APTT 27.8 Seconds (23.7-30.8) 03/06/17 18:50
[2017-03-08 07:06] LABS: ALB/GLOB RATIO 0.9 (1.1-1.8); ALKALINE PHOSPHATASE 61 U/L (38-133); ALT/SGPT 41 U/L (7-56); AST/SGOT 48 U/L (15-59); BILIRUBIN,TOTAL 1.5 mg/dL (0.2-1.3); BLOOD UREA NITROGEN 10 mg/dL (7-21); CALCIUM 8.3 mg/dL (8.4-10.5); CARBON DIOXIDE 26 mmol/L (21-33); CHLORIDE 100 mmol/L (98-107); GFR AFRICAN-AMERICAN > 60; GLUCOSE,RANDOM 83 mg/dL (70-110); POTASSIUM 3.5 mmol/L (3.6-5.0); SODIUM 137 mmol/L (132-148); TOTAL PROTEIN 7.1 g/dL (5.8-8.3)
--- NOTE | 2017-03-08 07:23 | CP.PCM.PN ---
Subjective - Date & Time of Evaluation Date of Evaluation: 03/08/17 Time of Evaluation: 07:20 - Subjective Subjective: Surgery: Dr. Mendieta Pt seen and examined. Sitting comfortably in chair. Still has abd pain, but it is improved. States that he feels like he is going through withdrawals. He is taking ativan as needed and he states that it is helping. Intermittent nausea, no vomiting. Objective - Vital Signs/Intake and Output Vital Signs (last 24 hours): Temp Pulse Resp BP Pulse Ox 98.6 F 93 H 20 127/84 97 03/07/17 16:00 03/07/17 16:00 03/07/17 16:00 03/07/17 16:00 03/07/17 16:00 Intake and Output: 03/08/17 03/08/17 06:59 18:59 Output Total 400 Balance -400 - Medications Medications: Current Medications Acetaminophen (Tylenol 325mg Tab) 650 mg PO Q4H PRN PRN Reason: Fever >100.4 F Lactated Ringer's (Lactated Ringer's) 1,000 mls @ 100 mls/hr IV .Q10H [facility] Last Admin: 03/07/17 21:39 Dose: 100 mls/hr Lorazepam (Ativan) 2 mg IVP Q6H PRN; Protocol PRN Reason: Anxiety Last Admin: 03/08/17 05:08 Dose: 2 mg Morphine Sulfate (Morphine) 4 mg IVP Q4H PRN PRN Reason: Pain, severe (8-10) Last Admin: 03/07/17 21:38 Dose: 4 mg Ondansetron HCl (Zofran Inj) 4 mg IVP Q4H PRN PRN Reason: Nausea/Vomiting Last Admin: 03/07/17 21:38 Dose: 4 mg Pantoprazole Sodium (Protonix Inj) 40 mg IVP DAILY ANEESH Last Admin: 03/07/17 09:38 Dose: 40 mg - Labs Labs: 03/08/17 06:48 PT 10.7 Seconds (9.9-11.8) 03/06/17 18:50 INR 0.99 (0.93-1.08) 03/06/17 18:50 APTT 27.8 Seconds (23.7-30.8) 03/06/17 18:50 - Constitutional Appears: Non-toxic, No Acute Distress, Other (anxious) - Head Exam Head Exam: ATRAUMATIC, NORMOCEPHALIC - Eye Exam Eye Exam: EOMI. absent: Scleral icterus - ENT Exam ENT Exam: Mucous Membranes Moist - Neck Exam Neck Exam: Full ROM - Respiratory Exam Respiratory Exam: NORMAL BREATHING PATTERN. absent: Accessory Muscle Use, Respiratory Distress - GI/Abdominal Exam GI & Abdominal Exam: Soft, Tenderness. absent: Distended, Firm, Guarding, Rigid , Rebound - Extremities Exam Extremities Exam: absent: Calf Tenderness, Pedal Edema - Neurological Exam Neurological Exam: Alert, Awake, Oriented x3 Assessment and Plan - Assessment and Plan (Free Text) Assessment: 36M w. ETOH pancreatitis and withdrawal symptoms -Trend lipase -NPO -IVF -Is:Os -pain management -ativan -serial abd exams -will d/w attending Genevieve PGY2
[2017-03-08 07:58] VITALS: PULSE 76; O2SAT 98
[2017-03-08 08:04] LABS: LIPASE 1494 U/L (23-300)
[2017-03-08] MEDS: Morphine 4 mg/ml ISec IVP PRN (09:45)
[2017-03-08] MEDS ORDERED: HYDROmorphone 1 mg/ml ISec IVP PRN (11:58)
[2017-03-08 16:26] VITALS: BP 141/97; TEMP 98.4
--- NOTE | 2017-03-08 18:00 | CP.PCM.PN ---
Subjective - Date & Time of Evaluation Date of Evaluation: 03/08/17 Time of Evaluation: 17:55 - Subjective Subjective: pt was admitted for pancreatitis and pancreatic cyst, is waiting for surgery , wants to sign AMA.pt states he will f/u with his doctor. Objective - Vital Signs/Intake and Output Vital Signs (last 24 hours): Temp Pulse Resp BP Pulse Ox 98.4 F 76 20 141/97 H 98 03/08/17 16:00 03/08/17 16:00 03/08/17 16:00 03/08/17 16:00 03/08/17 16:00 Intake and Output: 03/08/17 03/08/17 06:59 18:59 Output Total 400 Balance -400 - Medications Medications: Current Medications Acetaminophen (Tylenol 325mg Tab) 650 mg PO Q4H PRN PRN Reason: Fever >100.4 F Hydromorphone HCl (Dilaudid) 1 mg IVP Q3H PRN PRN Reason: Pain, moderate (4-7) Last Admin: 03/08/17 12:30 Dose: 1 mg Lactated Ringer's (Lactated Ringer's) 1,000 mls @ 100 mls/hr IV .Q10H ANEESH Last Admin: 03/07/17 21:39 Dose: 100 mls/hr Lorazepam (Ativan) 2 mg IVP Q6H PRN; Protocol PRN Reason: Anxiety Last Admin: 03/08/17 05:08 Dose: 2 mg Ondansetron HCl (Zofran Inj) 4 mg IVP Q4H PRN PRN Reason: Nausea/Vomiting Last Admin: 03/07/17 21:38 Dose: 4 mg Pantoprazole Sodium (Protonix Inj) 40 mg IVP DAILY ANEESH Last Admin: 03/08/17 09:44 Dose: 40 mg - Labs Labs: 03/08/17 06:48 PT 10.7 Seconds (9.9-11.8) 03/06/17 18:50 INR 0.99 (0.93-1.08) 03/06/17 18:50 APTT 27.8 Seconds (23.7-30.8) 03/06/17 18:50 - Constitutional Appears: No Acute Distress - Head Exam Head Exam: NORMOCEPHALIC - Eye Exam Pupil Exam: PERRL - ENT Exam ENT Exam: Mucous Membranes Moist - Neck Exam Neck Exam: Full ROM - Respiratory Exam Respiratory Exam: Clear to Ausculation Bilateral, NORMAL BREATHING PATTERN - Cardiovascular Exam Cardiovascular Exam: RRR, +S1, +S2 - GI/Abdominal Exam GI & Abdominal Exam: Soft, Normal Bowel Sounds - Rectal Exam Rectal Exam: Deferred - Extremities Exam Extremities Exam: Full ROM - Neurological Exam Neurological Exam: Alert, Awake, CN II-XII Intact, Oriented x3 - Psychiatric Exam Psychiatric exam: Normal Affect - Skin Skin Exam: Dry, Warm Assessment and Plan - Assessment and Plan (Free Text) Assessment: pancreatic cyst. pancreatitis . AMA. Plan: risk of continued pain and infection explained to pt.
--- NOTE | 2017-03-10 00:53 | CP.PCM.PN ---
Subjective - Date & Time of Evaluation Date of Evaluation: 03/08/17 Time of Evaluation: 13:00 - Subjective Subjective: Admitted with acute pancreatitis. Complaining of abdominal pain. No nausea, He was started oral liquids today. Stating developed abdominal pain after drinking clear liquids. Objective - Vital Signs/Intake and Output Vital Signs (last 24 hours): Temp Pulse Resp BP Pulse Ox 98.4 F 76 20 141/97 H 98 03/08/17 16:00 03/08/17 16:00 03/08/17 16:00 03/08/17 16:00 03/08/17 16:00 - Labs Labs: 03/08/17 06:48 PT 10.7 Seconds (9.9-11.8) 03/06/17 18:50 INR 0.99 (0.93-1.08) 03/06/17 18:50 APTT 27.8 Seconds (23.7-30.8) 03/06/17 18:50 - Constitutional Appears: Agitated - Head Exam Head Exam: ATRAUMATIC, NORMAL INSPECTION, NORMOCEPHALIC - Eye Exam Eye Exam: Normal appearance Pupil Exam: NORMAL ACCOMODATION - ENT Exam ENT Exam: Mucous Membranes Moist - Neck Exam Neck Exam: Normal Inspection - Respiratory Exam Respiratory Exam: Clear to Ausculation Bilateral - GI/Abdominal Exam GI & Abdominal Exam: Soft, Normal Bowel Sounds - Extremities Exam Extremities Exam: Full ROM, Normal Inspection - Back Exam Back Exam: NORMAL INSPECTION - Neurological Exam Neurological Exam: Alert, CN II-XII Intact, Normal Gait, Oriented x3 - Psychiatric Exam Psychiatric exam: Normal Affect - Skin Skin Exam: Normal Color, Warm Assessment and Plan (1) Abdominal pain Assessment & Plan: just received IV morphine. saying no relief. Dilaudid 1 mg Q 3 hrs IV for abdominal pain. Status: Acute (2) Alcohol dependence Status: Acute (3) Hydronephrosis, left Status: Acute (4) Pancreatitis Assessment & Plan: acute pancreatitis. did not tolerate clear liquids. NPO for today. continue IVF 100 cc/hr. protonix 20 mg IV Status: Acute
--- NOTE | 2017-04-05 21:20 | DS ---
This is a 36-year-old male with pancreatitis and pancreatic cyst. He left AMA. Please see the note on 03/07/2017 that outlines the patient's hospital admission with an H and P that was done. Jaison Joseph MD cc: [id number] TT: 04/05/2017 21:19:41 rn
== END 2017-03-08 19:03 | disposition left against medical advice (07) | DRG 557 ==
LOC: ED 17:52 → ERH 20:08 → 5RSO 22:59
PROVIDERS: ADMIT Internal Medicine Nephrology; ATTEND Internal Medicine Nephrology
DX: K85.90 Acute pancreatitis without necrosis or infection, unspecified (principal); K86.2 Cyst of pancreas; N13.30 Unspecified hydronephrosis; I12.9 Hypertensive chronic kidney disease with stage 1 through stage 4 chronic kidney disease, or unspecified chronic kidney disease; N18.9 Chronic kidney disease, unspecified; F10.239 Alcohol dependence with withdrawal, unspecified; F10.229 Alcohol dependence with intoxication, unspecified; G47.00 Insomnia, unspecified; N28.1 Cyst of kidney, acquired; Z90.49 Acquired absence of other specified parts of digestive tract; Z98.84 Bariatric surgery status; F41.9 Anxiety disorder, unspecified; Z87.892 Personal history of anaphylaxis; Z91.018 Allergy to other foods; Y90.8 Blood alcohol level of 240 mg/100 ml or more; F51.02 Adjustment insomnia

== ENCOUNTER 2017-03-31 11:43 | Observation (INO) | payer OTHER ==
[2017-03-31 12:41] VITALS: RESP 16; TEMP 98; BMI 24.4
[2017-03-31] MEDS ORDERED: Sodium Chloride 0.9% 1,000 ML IV STA (13:02)
--- NOTE | 2017-03-31 13:43 | ED PDOC ---
Arrival/HPI - General Chief Complaint: Abdominal Pain Time Seen by Provider: 03/31/17 13:00 Historian: Patient - History of Present Illness Narrative History of Present Illness (Text): 03/31/17 13:26 A 36 year old male, whose past medical history includes pancreatitis, presents to the emergency department complaining of diffuse abdominal pain associated with nausea and non bloody non bilious vomiting since this morning. Patient states symptoms are similar to previous pancreatitis pain. He denies any history of gallstones. Patient denies fever, chills, or stool changes, other complaints at this time. Time/Duration: 4-6 hours Symptom Onset: Sudden Symptom Course: Unchanged Quality: Other Activities at Onset: Rest Context: Home Past Medical History - Provider Review Nursing Documentation Reviewed: Yes - Infectious Disease Hx of Infectious Diseases: None - Tetanus Immunization Tetanus Immunization: Unknown - Past Medical History Past Medical History: No Previous - Cardiac Hx Cardiac Disorders: Yes Hx Hypertension: Yes - Pulmonary Hx Respiratory Disorders: No Hx Tuberculosis: No - Neurological Hx Neurological Disorder: No Hx Seizures: No - HEENT Hx HEENT Disorder: No - Renal Hx Renal Disorder: Yes Hx Renal Failure: Yes - Endocrine/Metabolic Hx Endocrine Disorders: No - Hematological/Oncological Hx Blood Disorders: No Hx Cancer: No - Integumentary Hx Dermatological Disorder: No - Musculoskeletal/Rheumatological Hx Falls: No - Gastrointestinal Hx Gastrointestinal Disorders: Yes - Genitourinary/Gynecological Hx Genitourinary Disorders: No Hx Sexually Transmitted Diseases: No - Psychiatric Hx Psychophysiologic Disorder: Yes Hx Anxiety: Yes Hx Substance Use: No - Surgical History Hx Appendectomy: Yes Hx Gastric Bypass Surgery: Yes Other/Comment: hernia - Anesthesia Hx Anesthesia: Yes Hx Anesthesia Reactions: No Hx Malignant Hyperthermia: No - Suicidal Assessment Feels Threatened In Home Enviroment: No Family/Social History - Physician Review Nursing Documentation Reviewed: Yes Family/Social History: Unknown Family HX Smoking Status: Never Smoked Hx Alcohol Use: Yes Hx Substance Use: No Hx Substance Use Treatment: No Allergies/Home Meds Allergies/Adverse Reactions: Allergies sesame seed Allergy (Verified 02/24/17 10:54) ANAPHYLAXIS hummus Allergy (Uncoded 02/24/17 10:54) ANAPHYLAXIS Home Medications: Home Meds Medication Instructions Recorded Confirmed Dicyclomine [Bentyl] 10 mg PO BID 02/24/17 02/24/17 Physical Exam - Physical Exam Narrative Physical Exam (Text): - Review of Systems Constitutional: Normal. absent: Fatigue, Weight Change, Fevers Eyes: Normal ENT: Normal Respiratory: Normal absent: SOB, Cough, Sputum Cardiovascular: Normal absent: Chest pain, Palpitations, Syncope Gastrointestinal: Abdominal Pain, Nausea, Vomiting absent: Diarrhea Genitourinary: Normal. absent: Dysuria, Frequency, Hematuria Musculoskeletal: Normal. absent: Arthralgias, Back Pain, Neck Pain Skin: Normal Neurological: Normal absent: Focal Weakness Endocrine: Normal Hemo/Lymphatic: Normal Psychiatric: Normal - Physical exam Patient appears age appropriate, speaking full sentences without difficulty - Systems Exam Head: Present: Atraumatic, Normocephalic Pupils: Present: PERRL Extraocular Muscles: Present: EOMI Conjunctiva: Present: Normal Mouth: Present: Moist Mucous Membranes Neck: Present: Normal Range of Motion. No: MIDLINE TENDERNESS, Paraspinal Tenderness Respiratory/Chest: Present: Clear to Auscultation, Good Air Exchange. No: Respiratory Distress, Accessory Muscle Use, Tachypneic Cardiovascular: Present: Regular Rate and Rhythm, Normal S1, S2, Peripheral Pulses Present. No: Murmurs Abdomen: Present: Normal Bowel Sounds, Diffuse tenderness. No: Peritoneal Signs , Rebound, Guarding, Distention Back: Present: Normal Inspection. No: Midline Tenderness, Paraspinal Tenderness Upper Extremity: Present: Normal Inspection. No: Cyanosis, Edema Lower Extremity: Present: Normal Inspection. No: Edema Neurological: Present: GCS=15, Speech Normal, cranial nerves II through XII fully intact with no cerebellar abnormality, neuro-sensory fully intact. No focal neurological deficits. Skin: Present: Warm, Dry, Normal Color. No: Rashes Lymphatic: Present: OX3, NI, NC Psychiatric: Present: Alert, Oriented x 3, Normal Insight, Normal Concentration Vital Signs Reviewed: Yes Vital Signs Temp Pulse Resp BP Pulse Ox 03/31/17 12:38 98.0 F 91 H 16 156/89 H 98 Temperature: Afebrile Blood Pressure: Hypertensive Pulse: Regular Respiratory Rate: Normal Appearance: Positive for: Well-Appearing, Non-Toxic, Comfortable Pain Distress: None Mental Status: Positive for: Alert and Oriented X 3 Medical Decision Making ED Course and Treatment: 03/31/17 13:26 Impression: A 36 year old male with history of pancreatitis with abdominal pain, nausea and vomiting. Abdomen is diffusely tender on examination with no rebound, no guarding, or other acute findings. Patient states that he has a recurrent history of pancreatitis, patient admits to having a history of alcohol abuse, but no history of gallstones Differential Diagnosis include but are not limited to: pancreatitis versus nonspecific abdominal pain Plan: -- Labs -- Morphine, Zofran and IV Fluids -- Reassess and disposition Progress Notes: 03/31/17 17:40 Lipase normal CAT scan ordered 03/31/17 18:27 CT IMPRESSION: Findings consistent with chronic left UPJ obstruction with secondary enlargement of the left kidney, dilatation of the left renal pelvis, left renal collecting system associated with widespread caliectasis. Mild fatty hepatic infiltration. Postoperative changes stomach as above. 03/31/17 18:31 On reevaluation, patient reports that he feels much better and would like to be discharged home. Patient's repeat abdominal exam is soft, nontender, non distended with positive bowel sounds in all 4 quadrants and no peritoneal signs. Patient is tolerating PO without any difficulty. Pt states he understands to return to the ER right away for new or worsening symptoms or for inability to f/u with PMD or specialist as instructed. Patient states that he fully agrees with and understands discharge instructions. States that he agrees with the plan and disposition. Verbalized and repeated discharge instructions and plan. I have given the patient opportunity to ask any additional questions. Patient states that he has follow-up with Dr. Joseph tomorrow. - Lab Interpretations Lab Results: 03/31/17 13:02 03/31/17 13:45 Lab Results 03/31/17 13:45: Sodium 139, Potassium 4.0, Chloride 98, Carbon Dioxide 18 L, Anion Gap 27 H, BUN 11, Creatinine 0.8, Est GFR ( Amer) > 60, Est GFR ( Non-Af Amer) > 60, Random Glucose 140 H, Calcium 9.6, Total Bilirubin 0.6, AST 37, ALT 49, Alkaline Phosphatase 55, Total Protein 8.4 H, Albumin 4.6, Globulin 3.9, Albumin/Globulin Ratio 1.2, Lipase 82 03/31/17 13:02: PT 12.0 H, INR 1.11 H, APTT 24.0 03/31/17 13:02: WBC 7.6, RBC 4.74, Hgb 14.8, Hct 41.4 L, MCV 87.3, MCH 31.2, MCHC 35.7, RDW 15.0 H, Plt Count 331, MPV 8.5, Gran % 83.0 H, Lymph % (Auto) 14.5 L, Pike % (Auto) 2.2, Eos % (Auto) 0.0 L, Baso % (Auto) 0.3, Gran # 6.28, Lymph # 1.1 L, Pike # 0.2, Eos # 0.0, Baso # 0.02 I have reviewed the lab results: Yes - RAD Interpretation Radiology Orders: 03/31/17 15:05 ABD & PELVIS IV CONTRAST ONLY [CT] Stat - Medication Orders Current Medication Orders: Discontinued Medications Sodium Chloride (Sodium Chloride 0.9%) 1,000 mls @ 1,000 mls/hr IV .Q1H STA Stop: 03/31/17 14:01 Last Admin: 03/31/17 13:47 Dose: 1,000 mls/hr Iohexol (Omnipaque 350 100 Ml) Confirm Administered Dose 350 mg .ROUTE .STK-MED ONE Stop: 03/31/17 16:17 Iohexol (Omnipaque 350 100 Ml) Confirm Administered Dose 350 mg .ROUTE .STK-MED ONE Stop: 03/31/17 16:51 Morphine Sulfate (Morphine) 8 mg IVP STAT STA Stop: 03/31/17 13:32 Last Admin: 03/31/17 14:27 Dose: 8 mg Ondansetron HCl (Zofran Inj) 4 mg IVP STAT STA Stop: 03/31/17 13:33 Last Admin: 03/31/17 14:27 Dose: 4 mg ED OBSERVATION Discharge: Yes Date of observation admission: 03/31/17 Time of observation admission: 12:40 - Observation admission statement Patient is being placed in observation because:: abdominal pain - Goals of Observation Goals of observation are:: abdominal pain workup - Scribe Statement The provider has reviewed the documentation as recorded by the Jerri Hu Provider Scribe Attestation: All medical record entries made by the Scribe were at my direction and personally dictated by me. I have reviewed the chart and agree that the record accurately reflects my personal performance of the history, physical exam, medical decision making, and the department course for this patient. I have also personally directed, reviewed, and agree with the discharge instructions and disposition. Disposition/Present on Arrival - Present on Arrival Any Indicators Present on Arrival: No History of DVT/PE: No History of Uncontrolled Diabetes: No Urinary Catheter: No History of Decub. Ulcer: No History Surgical Site Infection Following: None - Disposition Have Diagnosis and Disposition been Completed?: Yes Diagnosis: Abdominal pain Disposition: HOME/ ROUTINE Disposition Time: 12:40 Patient Plan: Discharge Patient Problems: Current Active Problems Problem Status Onset Abdominal pain Acute Condition: GOOD Discharge Instructions (ExitCare): Acute Abdominal Pain (ED) Additional Instructions: PLEASE RETURN TO THE EMERGENCY DEPARTMENT FOR NEW OR WORSENING SYMPTOMS. RETURN RIGHT AWAY IF YOU CANNOT FOLLOW UP WITH YOUR PRIMARY CARE DOCTOR, CLINIC, OR SPECIALIST IN 1-2 DAYS. Prescriptions: Famotidine [Pepcid] 20 mg PO BID #14 tab Ondansetron [Zofran Odt] 4 mg PO Q6 PRN #14 odt PRN Reason: Nausea/Vomiting Referrals: Hardik Lopez MD [Primary Care Provider] - Follow up with primary Jaison Joseph MD [Staff Provider] - Follow up with primary Forms: WORK NOTE
[2017-03-31 13:56] LABS: ADD MANUAL DIFF? NO; BASO # 0.02 K/mm3 (0.0-2.0); BASO % 0.3 % (0.0-3.0); GRAN # 6.28 (1.4-6.5); HEMATOCRIT 41.4 % (42.0-52.0); LYMPH # 1.1 (1.2-3.4); LYMPH % 14.5 % (22.0-35.0); MEAN CELL VOLUME 87.3 fL (80.0-105.0); MEAN CORPUSCULAR HEMOGLOBIN 31.2 pg (25.0-35.0); MEAN CORPUSCULAR HGB CONC 35.7 g/dl (31.0-37.0); MEAN PLATELET VOLUME 8.5 fl (7.0-11.0); MONO # 0.2 (0.1-0.6); MONO % 2.2 % (1.0-6.0); PLATELET COUNT 331 10^3/uL (120.0-450.0); WHITE BLOOD COUNT 7.6 10^3/ul (4.5-11.0)
[2017-03-31 13:59] LABS: ALB/GLOB RATIO 1.2 (1.1-1.8); ALKALINE PHOSPHATASE 55 U/L (38-133); ALT/SGPT 49 U/L (7-56); AST/SGOT 37 U/L (15-59); BILIRUBIN,TOTAL 0.6 mg/dL (0.2-1.3); BLOOD UREA NITROGEN 11 mg/dL (7-21); CALCIUM 9.6 mg/dL (8.4-10.5); CARBON DIOXIDE 18 mmol/L (21-33); CHLORIDE 98 mmol/L (98-107); GFR AFRICAN-AMERICAN > 60; GLUCOSE,RANDOM 140 mg/dL (70-110); LIPASE 82 U/L (23-300); SODIUM 139 mmol/L (132-148); TOTAL PROTEIN 8.4 g/dL (5.8-8.3)
[2017-03-31 14:06] LABS: INR 1.11 (0.93-1.08)
[2017-03-31] MEDS ORDERED: Iohexol 350 MG/100 ML VIAL ONE ×2 (16:16→16:50)
--- NOTE | 2017-03-31 18:16 | CT ---
PROCEDURE: CT Abdomen and pelvis dated 03/31/2017 HISTORY: Abdominal pain COMPARISON: Comparison made with CT scan of the abdomen and pelvis dated 02/24/2017 TECHNIQUE: Contiguous axial images of the abdomen and pelvis. Oral contrast was administered. No IV contrast given. Coronal and Sagittal reformats generated. Radiation dose: Total exam DLP = 597.97 mGy-cm. This CT exam was performed using one or more of the following dose reduction techniques: Automated exposure control, adjustment of the mA and/or kV according to patient size, and/or use of iterative reconstruction technique. FINDINGS: LOWER THORAX: Lung bases are clear. No infiltrate effusion or basilar pneumothorax. The. Again noted is a punctate han calcified granuloma right lobe posterior lung base unchanged tiny hiatal hernia. Heart size within range of normal. No significant pericardial effusion. LIVER: Liver exhibits normal size measuring approximately 15.7 cm in CC dimension. . Mild moderate diffuse fatty hepatic infiltration. . There is a small approximately 8 mm round/elliptical shaped focus low attenuation superior aspect right lobe liver best seen on axial image number 24- 26. This is too small to characterize though could represent a small hemangioma and splenic. Followup interval could be performed to assess stability. Portal and splenic veins are opacified. GALLBLADDER AND BILE DUCTS: Gallbladder is physiologically distended. No evidence of intraluminal gallbladder calculi. . PANCREAS: Visualized portions the pancreas unremarkable. . SPLEEN: Spleen exhibits normal size and attenuation pattern. ADRENALS: No adrenal lesions. KIDNEYS AND URETERS: Re- demonstrated is chronic left UPJ obstruction with the dilatation of the renal collecting system and blunting of the calices. The the proximal left ureter exhibits normal caliber BLADDER: The urinary bladder is physiologically distended. No evidence of intraluminal urinary bladder calculi. . REPRODUCTIVE: Prostate gland and seminal vesicles unremarkable. APPENDIX: The appendix is not seen with certainty on this study however no obvious inflammatory changes right lower quadrant of the abdomen. The BOWEL: Evaluation of the bowel is somewhat limited due to the lack of oral contrast material. Postoperative changes of the stomach again noted likely secondary to the gastric bypass surgery. . Visualized loops of small bowel exhibit normal contour and caliber. No evidence acute mechanical small bowel obstruction. Stool is seen throughout the cecum and at ascending colon however the remaining colon is relatively collapsed. PERITONEUM: Unremarkable. No fluid collection. No free air. LYMPH NODES: Unremarkable. No enlarged lymph nodes. VASCULATURE: Unremarkable. No aortic aneurysm. BONES: Minor multilevel degenerative spondylosis of the lower thoracic and lumbar spine. The subtle dextroscoliosis. Multiple small round sclerotic densities seen scattered throughout the right pelvis and both femoral heads consistent with small osteoma/bone islands. . OTHER FINDINGS: None. IMPRESSION: Findings consistent with chronic left UPJ obstruction with secondary enlargement of the left kidney, dilatation of the left renal pelvis, left renal collecting system associated with widespread caliectasis. Mild fatty hepatic infiltration. Postoperative changes stomach as above.
[2017-04-01 01:01] VITALS: BP 150/83; PULSE 87; O2SAT 98
== END 2017-03-31 18:34 | disposition home or self-care (01) ==
LOC: ED 11:43 → EROBSV 12:40
PROVIDERS: ADMIT Emergency Medicine; ATTEND Emergency Medicine
DX: R10.9 Unspecified abdominal pain (principal)
CPT/HCPCS: 74177; 80053; 83690; 85025; 85610; 85730; 96374; 96375; 99283; G0378; J2270; J2405; J7040; Q9967

== ENCOUNTER 2017-04-05 19:31 | Observation (INO) | payer OTHER ==
[2017-04-05 19:31] VITALS: BMI 24.4
--- NOTE | 2017-04-05 19:43 | ED PDOC ---
Arrival/HPI <JermaineManuel - Last Filed: 04/05/17 20:25> - General Historian: Patient, EMS <Raj Garcia - Last Filed: 04/06/17 14:42> - General Chief Complaint: Alcohol Ingestion Time Seen by Provider: 04/05/17 19:40 - History of Present Illness Narrative History of Present Illness (Text): 04/05/17 19:45 36 y/o male, pmh including alcohol withdrawal, psychiatric history including anxiety/depression/alcohol abuse, nkda, c/o feeling anxious and depressed. Pt. stated that he has been feeling anxious and depressed lately, not been taking his medication, been drinking heavily for the past 4 days, been through the detox program for alcohol abuse, request to see the psychiatrist. Pt. has no homicidal or suicidal ideation, no auditory or visual hallucination. (Raj Garcia) Past Medical History - Provider Review Nursing Documentation Reviewed: Yes - Infectious Disease Hx of Infectious Diseases: None - Tetanus Immunization Tetanus Immunization: Unknown - Past Medical History Past Medical History: No Previous - Cardiac Hx Cardiac Disorders: Yes Hx Hypertension: Yes - Pulmonary Hx Respiratory Disorders: No Hx Tuberculosis: No - Neurological Hx Neurological Disorder: No Hx Seizures: No - HEENT Hx HEENT Disorder: No - Renal Hx Renal Disorder: Yes Hx Renal Failure: Yes (pt does not confirm/deny) - Endocrine/Metabolic Hx Endocrine Disorders: No - Hematological/Oncological Hx Blood Disorders: No Hx Cancer: No - Integumentary Hx Dermatological Disorder: No - Musculoskeletal/Rheumatological Hx Falls: No - Gastrointestinal Hx Gastrointestinal Disorders: Yes - Genitourinary/Gynecological Hx Genitourinary Disorders: No Hx Sexually Transmitted Diseases: No - Psychiatric Hx Psychophysiologic Disorder: Yes Hx Anxiety: Yes Hx Depression: Yes Hx Substance Use: No - Surgical History Hx Appendectomy: Yes Hx Gastric Bypass Surgery: Yes Other/Comment: hernia - Anesthesia Hx Anesthesia: Yes Hx Anesthesia Reactions: No Hx Malignant Hyperthermia: No - Suicidal Assessment Feels Threatened In Home Enviroment: No <Raj Garcia - Last Filed: 04/06/17 14:42> Family/Social History - Physician Review Nursing Documentation Reviewed: Yes Family/Social History: Unknown Family HX Smoking Status: Never Smoked Hx Alcohol Use: Yes Frequency of alcohol use: Daily Hx Substance Use: No Hx Substance Use Treatment: No <Raj Garcia - Last Filed: 04/06/17 14:42> Allergies/Home Meds <Manuel Dean - Last Filed: 04/05/17 20:25> <Raj Garcia - Last Filed: 04/06/17 14:42> Allergies/Adverse Reactions: Allergies sesame seed Allergy (Verified 04/05/17 19:35) ANAPHYLAXIS hummus Allergy (Uncoded 04/05/17 19:35) ANAPHYLAXIS Home Medications: Home Meds Medication Instructions Recorded Confirmed Alprazolam [Xanax] 0.5 mg PO BID 04/05/17 04/05/17 Sertraline HCl [Zoloft] 25 mg PO DAILY 04/05/17 04/05/17 Review of Systems - Review of Systems Constitutional: absent: Fatigue, Fevers Eyes: absent: Vision Changes ENT: absent: Hearing Changes Respiratory: absent: SOB, Cough Cardiovascular: absent: Chest Pain Gastrointestinal: absent: Abdominal Pain, Diarrhea, Nausea, Vomiting Musculoskeletal: absent: Arthralgias, Back Pain, Neck Pain, Joint Swelling, Myalgias Skin: absent: Rash, Pruritis, Skin Lesions Neurological: absent: Headache, Dizziness, Focal Weakness, Gait Changes, Speech Changes, Facial Droop, Disequilibrium, Seizure Psychiatric: Anxiety, Depression <Raj Garcia - Last Filed: 04/06/17 14:42> Physical Exam Appearance: Positive for: Well-Appearing, Non-Toxic, Comfortable Mental Status: Positive for: Alert and Oriented X 3 - Systems Exam Head: Present: Atraumatic, Normocephalic Pupils: Present: PERRL Extroacular Muscles: Present: EOMI Conjunctiva: Present: Normal Mouth: Present: Moist Mucous Membranes Neck: Present: Normal Range of Motion Respiratory/Chest: Present: Clear to Auscultation, Good Air Exchange. No: Respiratory Distress, Accessory Muscle Use Cardiovascular: Present: Regular Rate and Rhythm, Normal S1, S2. No: Murmurs Abdomen: Present: Normal Bowel Sounds. No: Tenderness, Distention, Peritoneal Signs Back: Present: Normal Inspection Upper Extremity: Present: Normal Inspection. No: Cyanosis, Edema Lower Extremity: Present: Normal Inspection. No: Edema Neurological: Present: GCS=15, CN II-XII Intact, Speech Normal Skin: Present: Warm, Dry, Normal Color. No: Rashes Psychiatric: Present: Alert, Oriented x 3, Normal Insight, Normal Concentration , Anxious, Depressed Mood <Raj Garcia - Last Filed: 04/06/17 14:42> Vital Signs Temp Pulse Resp BP Pulse Ox 04/06/17 02:34 74 18 126/78 99 04/06/17 00:00 76 16 130/74 100 04/05/17 22:00 92 H 16 122/76 100 04/05/17 20:00 98.3 F 04/05/17 19:56 71 16 124/92 H 98 Medical Decision Making <Manuel Dean - Last Filed: 04/05/17 20:25> - Lab Interpretations I have reviewed the lab results: Yes Interpretation: Abnormal lab values (alcohol 271, +hematuria) - RAD Interpretation Rotary Operator: Radiologist - EKG Interpretation Interpreted by ED Physician: Yes Type: 12 lead EKG Comparison: Com.w/previous EKG <Raj Garcia - Last Filed: 04/06/17 14:42> ED Course and Treatment: 04/05/17 19:40 -labs/ua/uds -ekg -chest x-ray -IV banana bag/zofran prn (if feeling nauseous) -will contact [facility] once sobered 04/05/17 20:50 -EKG: NSR @ 83 BPM, no ST elevation or depression, no T wave inversion compared with previous ekg. -Chest x-ray show no active disease -Labs show no acute findings except alcohol 271 -UA show no UTI, hematuria noted, discussed with patient for outpatient urologist. -UDS show no acute findings -Pt. is sleeping well, sobered around 01/07/2017 2am 04/06/17 01:32 -Pt. is currently withdrawing with the tongue fasciculation and bilateral hand tremors, tachycardic 105s, sweating and feeling nauseous, IV ativan 2mg and IVF ordered. -I discussed the case with Dr. Dean and he agreed on the admission. -I will admit the patient for alcohol withdrawal. 04/06/17 02:05 -I spoke to Dr. Meek and the medical sales representative Dr. Emile Manzano, will accept the case. Dr. Martins request to have hospitalist admit. (Raj Garcia) - Lab Interpretations Lab Results: 04/05/17 20:08 04/05/17 20:08 Lab Results 04/05/17 20:08: Alcohol, Quantitative 271 H 04/05/17 20:08: Salicylates < 1 L, Acetaminophen < 10.0 L 04/05/17 20:08: Sodium 140, Potassium 4.2, Chloride 98, Carbon Dioxide 27, Anion Gap 19, BUN 9, Creatinine 0.8, Est GFR ( Amer) > 60, Est GFR (Non- Af Amer) > 60, Random Glucose 125 H, Calcium 9.3, Total Bilirubin 0.7, AST 74 H , ALT 77 H, Alkaline Phosphatase 66, Total Protein 8.7 H, Albumin 4.6, Globulin 4.1, Albumin/Globulin Ratio 1.1 04/05/17 20:08: WBC 6.0 D, RBC 5.19, Hgb 15.8, Hct 44.7, MCV 86.1, MCH 30.4, MCHC 35.3, RDW 15.2 H, Plt Count 283, MPV 8.8, Gran % 54.1, Lymph % (Auto) 40.1 H, Stephens % (Auto) 5.2, Eos % (Auto) 0.3 L, Baso % (Auto) 0.3, Gran # 3.25, Lymph # 2.4, Stephens # 0.3, Eos # 0.0, Baso # 0.02 04/05/17 20:00: Urine Opiates Screen Negative, Urine Methadone Screen Negative, Ur Barbiturates Screen Negative, Ur Phencyclidine Scrn Negative, Ur Amphetamines Screen Negative, U Benzodiazepines Scrn Negative, U Oth Cocaine Metabols Negative, U Cannabinoids Screen Negative 04/05/17 20:00: Urine Color Yellow, Urine Appearance Clear, Urine pH 6.0, Ur Specific [place] 1.015, Urine Protein 30 H, Urine Glucose (UA) Negative, Urine Ketones Negative, Urine Blood Large H, Urine Nitrate Negative, Urine Bilirubin Negative, Urine Urobilinogen 0.2, Ur Leukocyte Esterase Negative, Urine RBC 25 - 30, Urine WBC 1 - 3, Ur Epithelial Cells 3 - 4 - RAD Interpretation Radiology Orders: 04/05/17 19:43 CHEST PORTABLE [RAD] Stat 04/05/17 19:43 CHEST PORTABLE [RAD] Stat no active disease (Raj Garcia) - EKG Interpretation EKG Interpretation (Text): 04/05/17 19:50 EKG: NSR @ 83 BPM, no ST elevation or depression, no T wave inversion compared with previous ekg. (Raj Garcia) - Medication Orders Current Medication Orders: Discontinued Medications Chlordiazepoxide (Librium) 25 mg PO Q8 PRN; Protocol PRN Reason: Symptoms of alcohol withdrawl Last Admin: 04/06/17 05:53 Dose: 25 mg Re-Assess: Reassess Psych Meds Document 04/06/17 06:53 JFR (Rec: 04/06/17 07:45 JFR [facility] [place]-[id number]) Reassess Psych Med Effective Escitalopram Oxalate (Lexapro) 5 mg PO DAILY [facility] Last Admin: 04/06/17 11:08 Dose: 5 mg Multivitamins/Vitamin C 10 ml/Thiamine HCl 100 mg/ Folic Acid 1 mg/ Dextrose 1, 011.2 mls @ 1,000 mls/hr IV .Q1H1M ONE Stop: 04/05/17 20:46 Last Admin: 04/05/17 20:19 Dose: 1,000 mls/hr Sodium Chloride (Sodium Chloride 0.9%) 1,000 mls @ 100 mls/hr IV .Q10H STA Stop: 04/06/17 11:28 Last Admin: 04/06/17 01:34 Dose: 100 mls/hr Folic Acid 1 mg/ Thiamine HCl 100 mg/ Multivitamins/Vitamin C 10 ml/ Dextrose 1 ,011.2 mls @ 100 mls/hr IV .Q10H7M [facility] Last Admin: 04/06/17 05:54 Dose: 100 mls/hr Lorazepam (Ativan) 2 mg IVP ONCE ONE PRN Reason: Protocol Stop: 04/06/17 01:30 Last Admin: 04/06/17 01:34 Dose: 2 mg Lorazepam (Ativan) Confirm Administered Dose 2 mg .ROUTE .STK-MED ONE Stop: 04/06/17 01:31 Last Admin: 04/06/17 01:34 Dose: Lorazepam (Ativan) 2 mg IVP Q2 PRN; Protocol PRN Reason: Seizure activity Ondansetron HCl (Zofran Inj) 4 mg IVP STAT STA Stop: 04/05/17 20:23 Last Admin: 04/05/17 20:24 Dose: 4 mg Ondansetron HCl (Zofran Inj) 4 mg IVP STAT STA Stop: 04/06/17 01:27 Last Admin: 04/06/17 01:34 Dose: 4 mg Ondansetron HCl (Zofran Inj) 4 mg IVP Q4 PRN PRN Reason: Nausea/Vomiting Pantoprazole Sodium (Protonix Ec Tab) 40 mg PO 0630 [facility] Last Admin: 04/06/17 05:54 Dose: 40 mg Pneumococcal Polyvalent Vaccine (Pneumovax 23 Vaccine) 0.5 ml IM .ONCE ONE Stop: 04/06/17 06:26 Sertraline HCl (Zoloft) 25 mg PO DAILY [facility] Last Admin: 04/06/17 09:30 Dose: 25 mg - PA / TECHNICAL SALES DIRECTOR / Resident Statement DARLENE has reviewed & agrees with the documentation as recorded. DARLENE has examined the patient and agrees with the treatment plan. <Manuel Dean - Last Filed: 04/05/17 20:25> - PA / TECHNICAL SALES DIRECTOR / Resident Statement DARLENE has reviewed & agrees with the documentation as recorded. <Raj Garcia - Last Filed: 04/06/17 14:42> Disposition/Present on Arrival <Manuel Dean - Last Filed: 04/05/17 20:25> - Present on Arrival Any Indicators Present on Arrival: No History of DVT/PE: No History of Uncontrolled Diabetes: No Urinary Catheter: No History of Decub. Ulcer: No History Surgical Site Infection Following: None - Disposition Have Diagnosis and Disposition been Completed?: Yes Disposition Time: 01:33 Patient Plan: Observation <Raj Garcia - Last Filed: 04/06/17 14:42> - Disposition Diagnosis: Alcohol intoxication, Alcohol withdrawal Disposition: HOSPITALIZED Condition: GUARDED
[2017-04-05] MEDS ORDERED: Multivitamin (MVI) 10 ML, Thiamine 100 MG, Folic Acid 1 MG in Dextrose 5% In Water 1,00... IV ONE (19:46)
[2017-04-05 20:15] LABS: URINE BILIRUBIN NEGATIVE (NEGATIVE); URINE BLOOD LARGE (NEGATIVE); URINE GLUCOSE (UA) NEGATIVE (NEGATIVE); URINE KETONE NEGATIVE (NEGATIVE); URINE LEUKOCYTE ESTERASE NEGATIVE Leu/uL (NEGATIVE); URINE PROTEIN 30 mg/dL (<30 mg/dL); URINE UROBILINOGEN 0.2 E.U./dL (<1 E.U./dL)
[2017-04-05 20:19] LABS: URINE APPEARANCE CLEAR (CLEAR); URINE COLOR YELLOW (YELLOW)
[2017-04-05 20:20] LABS: URINE RBC 25 - 30 /hpf (0-2)
[2017-04-05 20:22] LABS: ADD MANUAL DIFF? NO
[2017-04-05 20:26] LABS: BASO # 0.02 K/mm3 (0.0-2.0); BASO % 0.3 % (0.0-3.0); EOS % 0.3 % (1.5-5.0); GRAN # 3.25 (1.4-6.5); GRAN % 54.1 % (50.0-68.0); HEMATOCRIT 44.7 % (42.0-52.0); LYMPH # 2.4 (1.2-3.4); LYMPH % 40.1 % (22.0-35.0); MEAN CELL VOLUME 86.1 fL (80.0-105.0); MEAN CORPUSCULAR HEMOGLOBIN 30.4 pg (25.0-35.0); MEAN CORPUSCULAR HGB CONC 35.3 g/dl (31.0-37.0); MEAN PLATELET VOLUME 8.8 fl (7.0-11.0); MONO # 0.3 (0.1-0.6); MONO % 5.2 % (1.0-6.0); PLATELET COUNT 283 10^3/uL (120.0-450.0); RED CELL DISTRIBUTION WIDTH 15.2 % (11.5-14.5)
[2017-04-05 20:35] LABS: ALB/GLOB RATIO 1.1 (1.1-1.8); ALKALINE PHOSPHATASE 66 U/L (38-133); ALT/SGPT 77 U/L (7-56); AST/SGOT 74 U/L (15-59); BILIRUBIN,TOTAL 0.7 mg/dL (0.2-1.3); BLOOD UREA NITROGEN 9 mg/dL (7-21); CALCIUM 9.3 mg/dL (8.4-10.5); CARBON DIOXIDE 27 mmol/L (21-33); CHLORIDE 98 mmol/L (98-107); GFR AFRICAN-AMERICAN > 60; GLUCOSE,RANDOM 125 mg/dL (70-110); POTASSIUM 4.2 mmol/L (3.6-5.0); SODIUM 140 mmol/L (132-148); TOTAL PROTEIN 8.7 g/dL (5.8-8.3)
[2017-04-06] MEDS ORDERED: Sodium Chloride 0.9% 1,000 ML IV STA (01:29)
[2017-04-06 02:45] VITALS: O2SAT 99
[2017-04-06] MEDS ORDERED: Folic Acid 1 MG, Thiamine 100 MG, Multivitamin (MVI) 10 ML in Dextrose 5% In Water 1,00... IV SCH (03:30)
--- NOTE | 2017-04-06 03:33 | CP.PCM.HP ---
<Gaurav Baptiste - Last Filed: 04/06/17 06:21> History of Present Illness - History of Present Illness History of Present Illness: 36 year old male with past medical history of anxiety, depression, and pancreatitis presents to [facility] with alcohol intoxication. Patient reports he has been drinking beer and wine for the past 4 days. Patient does not remember the quantity due to intoxication. Patient states he ran out of naltrexone so he had to self medicate by drinking alcohol. Patient also complains of having left upper quadrant abdominal pain and vomiting for the 2 days. Patient denies having headache, fever, chills, shortness of breath, nausea , vomiting, diarrhea, or urinary symptoms. PMD: Dr. Rice PMHx: anxiety, depression, hydronephrosis, and pancreatitis PSHx: gastric bypass Allergy: sesame seed Family Hx: unknown Home meds: xanax, zoloft Present on Admission - Present on Admission Any Indicators Present on Admission: No History of DVT/PE: No History of Uncontrolled Diabetes: No Review of Systems - Constitutional Constitutional: As Per HPI, Fatigue. absent: Chills, Fever, Headache - EENT Eyes: As Per HPI, Change in Vision Ears: As Per HPI, Decreased Hearing Nose/Mouth/Throat: As Per HPI. absent: Nasal Discharge - Cardiovascular Cardiovascular: As Per HPI. absent: Chest Pain, Edema, Leg Edema, Syncope - Respiratory Respiratory: As Per HPI. absent: Dyspnea, Wheezing - Gastrointestinal Gastrointestinal: As Per HPI, Nausea, Vomiting. absent: Diarrhea - Genitourinary Genitourinary: As Per HPI. absent: Urinary Incontinence, Urinary Frequency, Urinary Hesitance, Urinary Urgency - Musculoskeletal Musculoskeletal: As Per HPI. absent: Deformity, Joint Swelling, Numbness, Stiffness - Integumentary Integumentary: As Per HPI. absent: Dry Skin, Erythema, Swelling - Neurological Neurological: As Per HPI. absent: Dizziness, Focal Weakness, Headaches - Psychiatric Psychiatric: As Per HPI, Anxiety, Depression - Endocrine Endocrine: As Per HPI - Hematologic/Lymphatic Hematologic: As Per HPI Past Patient History - Infectious Disease Hx of Infectious Diseases: None - Tetanus Immunizations Tetanus Immunization: Unknown - Past Medical History & Family History Past Medical History?: Yes - Past Social History Smoking Status: Never Smoked - CARDIAC Hx Cardiac Disorders: Yes Hx Hypertension: Yes - PULMONARY Hx Respiratory Disorders: No Hx Tuberculosis: No - NEUROLOGICAL Hx Neurological Disorder: No Hx Seizures: No - HEENT Hx HEENT Problems: No - RENAL Hx Chronic Kidney Disease: Yes Hx Renal Failure: Yes (pt does not confirm/deny) - ENDOCRINE/METABOLIC Hx Endocrine Disorders: No - HEMATOLOGICAL/ONCOLOGICAL Hx Blood Disorders: No Hx Cancer: No - INTEGUMENTARY Hx Dermatological Problems: No - MUSCULOSKELETAL/RHEUMATOLOGICAL Hx Falls: No - GASTROINTESTINAL Hx Gastrointestinal Disorders: Yes - GENITOURINARY/GYNECOLOGICAL Hx Genitourinary Disorders: No Hx Sexually Transmitted Disorders: No - PSYCHIATRIC Hx Psychophysiologic Disorder: Yes Hx Anxiety: Yes Hx Depression: Yes Hx Substance Use: No - SURGICAL HISTORY Hx Appendectomy: Yes Hx Gastric Bypass Surgery: Yes Other/Comment: hernia - ANESTHESIA Hx Anesthesia: Yes Hx Anesthesia Reactions: No Hx Malignant Hyperthermia: No Meds Allergies/Adverse Reactions: Allergies Allergy/AdvReac Type Severity Reaction Status Date / Time sesame seed Allergy ANAPHYLAXIS Verified 04/05/17 19:35 hummus Allergy ANAPHYLAXIS Uncoded 04/05/17 19:35 Physical Exam - Constitutional Appears: Non-toxic, No Acute Distress, Older Than Stated Age - Head Exam Head Exam: ATRAUMATIC, NORMAL INSPECTION - Eye Exam Eye Exam: EOMI, Normal appearance, PERRL - ENT Exam ENT Exam: Mucous Membranes Moist - Neck Exam Neck exam: Positive for: Normal Inspection - Respiratory Exam Respiratory Exam: Clear to Auscultation Bilateral, NORMAL BREATHING PATTERN. absent: Rhonchi, Wheezes, Respiratory Distress - Cardiovascular Exam Cardiovascular Exam: REGULAR RHYTHM, RRR, +S1, +S2 - GI/Abdominal Exam GI & Abdominal Exam: Soft, Tenderness (left upper quadrant tenderness). absent : Hernia - Extremities Exam Extremities exam: Positive for: normal capillary refill, normal inspection, pedal pulses present. Negative for: tenderness - Back Exam Back exam: NORMAL INSPECTION - Neurological Exam Neurological exam: Alert, Oriented x3 Additional comments: slight bilateral upper extremity tremor - Psychiatric Exam Psychiatric exam: Depressed - Skin Skin Exam: Intact, Normal Color, Warm Results - Vital Signs Recent Vital Signs: Last Vital Signs Temp 98.3 F 04/05/17 20:00 Pulse 74 04/06/17 02:34 Resp 18 04/06/17 02:34 BP 126/78 04/06/17 02:34 Pulse Ox 99 04/06/17 02:34 - Labs Result Diagrams: 04/05/17 20:08 04/05/17 20:08 Assessment & Plan - Assessment and Plan (Free Text) Assessment: 36 year old male with past medical history anxiety, depression, and pancreatitis presents with alcohol intoxication Plan: Alcohol intoxication -CIWA -Aspiration precaution -Seizure precaution -Banana bag @100ml/hr -Neuro check Q4h -Librium 25mg po Q8 prn -Ativan 2mg IV Q2 prn -Zofran 4mg IV q4 prn Depression -Resume zoloft -Psychiatry consult, Dr. Kam help appreciated Anxiety -Resume xanax Prophylactic measure -Protonix for GI ppx -SCD for DVT ppx <Fantasma,Juan Q - Last Filed: 04/14/17 06:38> Results - Vital Signs Recent Vital Signs: Last Vital Signs Temp 98.4 F 04/06/17 12:03 Pulse 110 H 04/06/17 12:03 Resp 20 04/06/17 12:03 BP 149/97 H 04/06/17 12:03 Pulse Ox 99 04/06/17 02:34 - Labs Result Diagrams: 04/05/17 20:08 04/05/17 20:08 Attending/Attestation - Attestation I have personally seen and examined this patient.: Yes I have fully participated in the care of the patient.: Yes I have reviewed all pertinent clinical information: Yes
[2017-04-06 06:25] VITALS: RESP 20
[2017-04-06] MEDS ORDERED: Pneumococcal 23-Valent Vaccine IM ONE (06:25)
[2017-04-06] MEDS ORDERED: Pantoprazole 40 mg EC Tab PO SCH (06:30)
--- NOTE | 2017-04-06 10:52 | RAD ---
HISTORY: medical clearance COMPARISON: 12/16/2014 FINDINGS: LUNGS: No active pulmonary disease. PLEURA: No significant pleural effusion identified, no pneumothorax apparent. CARDIOVASCULAR: Normal. OSSEOUS STRUCTURES: No significant abnormalities. VISUALIZED UPPER ABDOMEN: Normal. OTHER FINDINGS: None. IMPRESSION: No active disease.
[2017-04-06 11:58] LABS: URINE APPEARANCE CLEAR (CLEAR); URINE BILIRUBIN NEGATIVE (NEGATIVE); URINE BLOOD LARGE (NEGATIVE); URINE COLOR YELLOW (YELLOW); URINE GLUCOSE (UA) NEGATIVE (NEGATIVE); URINE KETONE NEGATIVE (NEGATIVE); URINE LEUKOCYTE ESTERASE NEGATIVE Leu/uL (NEGATIVE); URINE PROTEIN 30 mg/dL (<30 mg/dL); URINE UROBILINOGEN 0.2 E.U./dL (<1 E.U./dL)
[2017-04-06 12:03] VITALS: BP 149/97; PULSE 110; TEMP 98.4
[2017-04-06 12:07] LABS: URINE RBC 20 - 25 /hpf (0-2)
[2017-04-06 12:08] LABS: URINE BACTERIA FEW (NEG)
--- NOTE | 2017-04-06 12:55 | CP.PCM.DIS ---
<Pancho Baires - Last Filed: 04/06/17 13:01> Provider - Provider Date of Admission: 04/06/17 01:42 Attending physician: Nicole Hernandez MD Primary care physician: NO PRIMARY CARE PROVIDER Time Spent in preparation of Discharge (in minutes): 45 Hospital Course - Lab Results Lab Results: Most Recent Lab Values WBC 6.0 10^3/ul (4.5-11.0) D 04/05/17 20:08 RBC 5.19 10^6/uL (3.5-6.1) 04/05/17 20:08 Hgb 15.8 gm/dL (14.0-18.0) 04/05/17 20:08 Hct 44.7 % (42.0-52.0) 04/05/17 20:08 MCV 86.1 fL (80.0-105.0) 04/05/17 20:08 MCH 30.4 pg (25.0-35.0) 04/05/17 20:08 MCHC 35.3 g/dl (31.0-37.0) 04/05/17 20:08 RDW 15.2 % (11.5-14.5) H 04/05/17 20:08 Plt Count 283 10^3/uL (120.0-450.0) 04/05/17 20:08 MPV 8.8 fl (7.0-11.0) 04/05/17 20:08 Gran % 54.1 % (50.0-68.0) 04/05/17 20:08 Lymph % (Auto) 40.1 % (22.0-35.0) H 04/05/17 20:08 [place] % (Auto) 5.2 % (1.0-6.0) 04/05/17 20:08 Eos % (Auto) 0.3 % (1.5-5.0) L 04/05/17 20:08 Baso % (Auto) 0.3 % (0.0-3.0) 04/05/17 20:08 Gran # 3.25 (1.4-6.5) 04/05/17 20:08 Lymph # 2.4 (1.2-3.4) 04/05/17 20:08 [place] # 0.3 (0.1-0.6) 04/05/17 20:08 Eos # 0.0 (0.0-0.7) 04/05/17 20:08 Baso # 0.02 K/mm3 (0.0-2.0) 04/05/17 20:08 Sodium 140 mmol/L (132-148) 04/05/17 20:08 Potassium 4.2 mmol/L (3.6-5.0) 04/05/17 20:08 Chloride 98 mmol/L (98-107) 04/05/17 20:08 Carbon Dioxide 27 mmol/L (21-33) 04/05/17 20:08 Anion Gap 19 (10-20) 04/05/17 20:08 BUN 9 mg/dL (7-21) 04/05/17 20:08 Creatinine 0.8 mg/dL (0.5-1.4) 04/05/17 20:08 Est GFR ( Amer) > 60 04/05/17 20:08 Est GFR (Non-Af Amer) > 60 04/05/17 20:08 Random Glucose 125 mg/dL (70-110) H 04/05/17 20:08 Calcium 9.3 mg/dL (8.4-10.5) 04/05/17 20:08 Total Bilirubin 0.7 mg/dL (0.2-1.3) 04/05/17 20:08 AST 74 U/L (15-59) H 04/05/17 20:08 ALT 77 U/L (7-56) H 04/05/17 20:08 Alkaline Phosphatase 66 U/L (38-133) 04/05/17 20:08 Total Protein 8.7 g/dL (5.8-8.3) H 04/05/17 20:08 Albumin 4.6 g/dL (3.0-4.8) 04/05/17 20:08 Globulin 4.1 gm/dL 04/05/17 20:08 Albumin/Globulin Ratio 1.1 (1.1-1.8) 04/05/17 20:08 Lipase 114 U/L (23-300) 04/06/17 09:20 Urine Color Yellow (YELLOW) 04/06/17 11:50 Urine Appearance Clear (CLEAR) 04/06/17 11:50 Urine pH 6.0 (4.7-8.0) 04/06/17 11:50 Ur Specific [place] 1.020 (1.005-1.035) 04/06/17 11:50 Urine Protein 30 mg/dL (<30 mg/dL) H 04/06/17 11:50 Urine Glucose (UA) Negative mg/dL (NEGATIVE) 04/06/17 11:50 Urine Ketones Negative mg/dL (NEGATIVE) 04/06/17 11:50 Urine Blood Large (NEGATIVE) H 04/06/17 11:50 Urine Nitrate Negative (NEGATIVE) 04/06/17 11:50 Urine Bilirubin Negative (NEGATIVE) 04/06/17 11:50 Urine Urobilinogen 0.2 E.U./dL (<1 E.U./dL) 04/06/17 11:50 Ur Leukocyte Esterase Negative Jackie/uL (NEGATIVE) 04/06/17 11:50 Urine RBC 20 - 25 /hpf (0-2) 04/06/17 11:50 Urine WBC 1 - 3 /hpf (0-6) 04/06/17 11:50 Ur Epithelial Cells 1 - 3 /hpf (0-5) 04/06/17 11:50 Urine Bacteria Few (NEG) 04/06/17 11:50 Salicylates < 1 mg/dL (2.0-20.0) L 04/05/17 20:08 Urine Opiates Screen Negative (NEGATIVE) 04/05/17 20:00 Urine Methadone Screen Negative (NEGATIVE) 04/05/17 20:00 Acetaminophen < 10.0 ug/ml (10.0-20.0) L 04/05/17 20:08 Ur Barbiturates Screen Negative (NEGATIVE) 04/05/17 20:00 Ur Phencyclidine Scrn Negative (NEGATIVE) 04/05/17 20:00 Ur Amphetamines Screen Negative (NEGATIVE) 04/05/17 20:00 U Benzodiazepines Scrn Negative (NEGATIVE) 04/05/17 20:00 U Oth Cocaine Metabols Negative (NEGATIVE) 04/05/17 20:00 U Cannabinoids Screen Negative (NEGATIVE) 04/05/17 20:00 Alcohol, Quantitative 271 mg/dL (0-10) H 04/05/17 20:08 - Hospital Course Hospital Course: Upon Admission: 36yo M with PMHx of Anxiety, Depression, Pancreatitis here for evaluation of ETOH intoxication. Patient was admitted overnight. ETOH level was 271. He states that he has been trying to quit ETOH use however, he started drinking again 4 days ago and was drinking daily. Had 4 bottles of wine and 6 beers last night. This morning, patient has been able to walk around the [place], with no severe withdrawal symptoms. 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 Patient was offered continued hospital admission for monitoring of withdrawal symptoms, however, he elected to be discharged. He states that he will return to the ER if he experiences any symptoms of severe withdrawal. Patient reports that he feels safe, denies any suicidal or homicidal thoughts. Patient was recommended to not drive or operate any heavy machinery for the next week. He states that he will use an Uber for transportation. Plan was discussed in detail with the patient, who understands and agrees. 1. ETOH intoxication. No signs of withdrawal at this time. Abstinence counseling. 2. Hx of Anxiety/Depression. Continue home meds Upon Discharge: Patient is cleared for discharge as per Dr. Sterling 1. Follow up with your primary care physician, Dr. Joseph, within one week 2. Resume home meds. 3. Abstain from using any alcohol 4. Take new medications as directed. 5. Do not drive or operate heavy machinery for the next week. 6. Return to the ER with any concerning symptoms. Return to the ER if experiencing any severe withdrawal symptoms. New Prescriptions: 1. Multivitamin PO daily 2. Folic Acid 1mg PO Daily 3. Thiamine 100mg PO Daily Discharge Exam - Head Exam Head Exam: ATRAUMATIC, NORMAL INSPECTION, NORMOCEPHALIC - Eye Exam Eye Exam: EOMI, Normal appearance. absent: Scleral icterus Pupil Exam: PERRL - ENT Exam ENT Exam: Mucous Membranes Moist - Neck Exam Neck exam: Full Rom - Respiratory Exam Respiratory Exam: Clear to PA & Lateral, NORMAL BREATHING PATTERN, UNREMARKABLE. absent: Accessory Muscle Use, Chest Wall Tenderness, Decreased Breath Sounds, Wheezes, Respiratory Distress, Stridor - Cardiovascular Exam Cardiovascular Exam: Tachycardia, +S1, +S2. absent: JVD - GI/Abdominal Exam GI & Abdominal Exam: Normal Bowel Sounds, Soft, Unremarkable. absent: Distended , Firm, Guarding, Rebound, Tenderness - Extremities Exam Extremities exam: normal inspection - Back Exam Back exam: NORMAL INSPECTION - Neurological Exam Neurological exam: Alert, Oriented x3 - Psychiatric Exam Psychiatric exam: Normal Affect, Normal Mood - Skin Skin Exam: Dry, Intact, Normal Color, Warm Discharge Plan - Discharge Medications Prescriptions: Folic Acid 1 mg PO DAILY #30 tab Multivitamin/Iron/Folic Acid [Centrum Complete Multivit Tab] 1 each PO DAILY # 30 tablet Thiamine [Vitamin B1 Tab] 100 mg PO DAILY #30 tab - Follow Up Plan Condition: GUARDED Disposition: HOME/ ROUTINE Instructions: Alcohol Intoxication (DC), Abuse of Alcohol (DC), Alcohol Withdrawal (DC) Additional Instructions: Patient is cleared for discharge as per Dr. Sterling 1. Follow up with your primary care physician, Dr. Joseph, within one week 2. Resume home meds. 3. Abstain from using any alcohol 4. Take new medications as directed. 5. Do not drive or operate heavy machinery for the next week. 6. Return to the ER with any concerning symptoms. Return to the ER if experiencing any severe withdrawal symptoms. New Prescriptions: 1. Multivitamin PO daily 2. Folic Acid 1mg PO Daily 3. Thiamine 100mg PO Daily Referrals: Jaison Joseph MD [Staff Provider] - PCPMICHAEL [Primary Care Provider] - <Hallie PEREZ,[facility] - Last Filed: 04/06/17 14:37> Provider - Provider Date of Admission: 04/06/17 01:42 Attending physician: Nicole Hernandez MD Primary care physician: MICHAEL PRIMARY CARE PROVIDER Hospital Course - Lab Results Lab Results: Most Recent Lab Values WBC 6.0 10^3/ul (4.5-11.0) D 04/05/17 20:08 RBC 5.19 10^6/uL (3.5-6.1) 04/05/17 20:08 Hgb 15.8 gm/dL (14.0-18.0) 04/05/17 20:08 Hct 44.7 % (42.0-52.0) 04/05/17 20:08 MCV 86.1 fL (80.0-105.0) 04/05/17 20:08 MCH 30.4 pg (25.0-35.0) 04/05/17 20:08 MCHC 35.3 g/dl (31.0-37.0) 04/05/17 20:08 RDW 15.2 % (11.5-14.5) H 04/05/17 20:08 Plt Count 283 10^3/uL (120.0-450.0) 04/05/17 20:08 MPV 8.8 fl (7.0-11.0) 04/05/17 20:08 Gran % 54.1 % (50.0-68.0) 04/05/17 20:08 Lymph % (Auto) 40.1 % (22.0-35.0) H 04/05/17 20:08 [place] % (Auto) 5.2 % (1.0-6.0) 04/05/17 20:08 Eos % (Auto) 0.3 % (1.5-5.0) L 04/05/17 20:08 Baso % (Auto) 0.3 % (0.0-3.0) 04/05/17 20:08 Gran # 3.25 (1.4-6.5) 04/05/17 20:08 Lymph # 2.4 (1.2-3.4) 04/05/17 20:08 [place] # 0.3 (0.1-0.6) 04/05/17 20:08 Eos # 0.0 (0.0-0.7) 04/05/17 20:08 Baso # 0.02 K/mm3 (0.0-2.0) 04/05/17 20:08 Sodium 140 mmol/L (132-148) 04/05/17 20:08 Potassium 4.2 mmol/L (3.6-5.0) 04/05/17 20:08 Chloride 98 mmol/L (98-107) 04/05/17 20:08 Carbon Dioxide 27 mmol/L (21-33) 04/05/17 20:08 Anion Gap 19 (10-20) 04/05/17 20:08 BUN 9 mg/dL (7-21) 04/05/17 20:08 Creatinine 0.8 mg/dL (0.5-1.4) 04/05/17 20:08 Est GFR ( Amer) > 60 04/05/17 20:08 Est GFR (Non-Af Amer) > 60 04/05/17 20:08 Random Glucose 125 mg/dL (70-110) H 04/05/17 20:08 Calcium 9.3 mg/dL (8.4-10.5) 04/05/17 20:08 Total Bilirubin 0.7 mg/dL (0.2-1.3) 04/05/17 20:08 AST 74 U/L (15-59) H 04/05/17 20:08 ALT 77 U/L (7-56) H 04/05/17 20:08 Alkaline Phosphatase 66 U/L (38-133) 04/05/17 20:08 Total Protein 8.7 g/dL (5.8-8.3) H 04/05/17 20:08 Albumin 4.6 g/dL (3.0-4.8) 04/05/17 20:08 Globulin 4.1 gm/dL 04/05/17 20:08 Albumin/Globulin Ratio 1.1 (1.1-1.8) 04/05/17 20:08 Lipase 114 U/L (23-300) 04/06/17 09:20 Urine Color Yellow (YELLOW) 04/06/17 11:50 Urine Appearance Clear (CLEAR) 04/06/17 11:50 Urine pH 6.0 (4.7-8.0) 04/06/17 11:50 Ur Specific [place] 1.020 (1.005-1.035) 04/06/17 11:50 Urine Protein 30 mg/dL (<30 mg/dL) H 04/06/17 11:50 Urine Glucose (UA) Negative mg/dL (NEGATIVE) 04/06/17 11:50 Urine Ketones Negative mg/dL (NEGATIVE) 04/06/17 11:50 Urine Blood Large (NEGATIVE) H 04/06/17 11:50 Urine Nitrate Negative (NEGATIVE) 04/06/17 11:50 Urine Bilirubin Negative (NEGATIVE) 04/06/17 11:50 Urine Urobilinogen 0.2 E.U./dL (<1 E.U./dL) 04/06/17 11:50 Ur Leukocyte Esterase Negative [place]/uL (NEGATIVE) 04/06/17 11:50 Urine RBC 20 - 25 /hpf (0-2) 04/06/17 11:50 Urine WBC 1 - 3 /hpf (0-6) 04/06/17 11:50 Ur Epithelial Cells 1 - 3 /hpf (0-5) 04/06/17 11:50 Urine Bacteria Few (NEG) 04/06/17 11:50 Salicylates < 1 mg/dL (2.0-20.0) L 04/05/17 20:08 Urine Opiates Screen Negative (NEGATIVE) 04/05/17 20:00 Urine Methadone Screen Negative (NEGATIVE) 04/05/17 20:00 Acetaminophen < 10.0 ug/ml (10.0-20.0) L 04/05/17 20:08 Ur Barbiturates Screen Negative (NEGATIVE) 04/05/17 20:00 Ur Phencyclidine Scrn Negative (NEGATIVE) 04/05/17 20:00 Ur Amphetamines Screen Negative (NEGATIVE) 04/05/17 20:00 U Benzodiazepines Scrn Negative (NEGATIVE) 04/05/17 20:00 U Oth Cocaine Metabols Negative (NEGATIVE) 04/05/17 20:00 U Cannabinoids Screen Negative (NEGATIVE) 04/05/17 20:00 Alcohol, Quantitative 271 mg/dL (0-10) H 04/05/17 20:08 Attending/Attestation - Attestation I have personally seen and examined this patient.: Yes I have fully participated in the care of the patient.: Yes I have reviewed all pertinent clinical information, including history, physical exam and plan: Yes Notes (Text): 04/06/17 14:34 Patient was seen and examined with medical office administrator .Agreed with resident assessment and plan. 36yo M with PMHx of Anxiety, Depression, Pancreatitis was admitted with alcohol intoxication, alert,awake today, no sign of any alcohol withdrawal at the time of evaluation, does not want to stay in the hospital.The issue of alcohol withdrawal was discussed in detail.Patient is feeling at his base line.The issue of ongoing alcohol abuse was discussed.Patient is planning to follow with his PCP and is planning to go back to his [facility] rehabilitation program.He is alert,a wake and oriented.He is ambulatory .He was educated about sign and symptoms of alcohol withdrawal prior to discharge. Management plan was discussed in detail with patient Education was provided.
--- NOTE | 2017-04-07 01:39 | CARD ---
APPROVED REPORT EKG Measurement Heart [id number] <Conclusion> Normal sinus rhythm Septal infarct, age undetermined Abnormal ECG
--- NOTE | 2017-04-07 08:38 | CON ---
DATE: 04/06/2017 The patient is a 36-year-old single -Dominican male with a history of depression, anxiety and a lcohol dependency who presents to [facility] ED intoxicated and reporting depression. Ps shiva was consulted for symptoms of depression. I met with patient at bedside this morning and patient is sober, alert and oriented x 3 and focus is good. The patient reports that he has been suffering from depression, worse in the last 4 days since he relapsed on alcohol and has been drinking nonstop wine and beer. Prior to that, he was sober for about a month has been taking Lexapro at an unknown dose as well as naltrexone and Xanax. The patie nt reports that he stopped these medications during his period of binging the last 4 days. Presently , his mood is a little bit improved, though he still remains depressed. He would like to restart wit h antidepressant. Regarding his alcohol withdrawal symptoms, he feels a little shaky at this time bu t denies any hallucinations, and patient presents as a reliable and consistent historian. 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 Affect shows a good range with good reactivity. Delusions were not elicited. Insigh t and judgment are considered to be fair. PSYCHIATRIC HISTORY: The patient denies any psych hospitalizations. Denies any suicide attempts. R eports that he is being prescribed Xanax (unknown dose) and Lexapro (unknown dose) by Dr. Jake muñiz the last 3 weeks. He had been taking it; however, stopped taking it the last 4 days while he was b david drinking. The patient also reports that he was prescribed naltrexone daily during this time. SOCIAL HISTORY: The patient was born in [facility]. He was raised in [place] and [place] since the a ge of 10. He is single. He has no children. He lives by himself. 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 The patient has been unemployed since then and increasingly drinking more though, and was at the [facility] detox 4 months ago. The patient managed to be abstinent for about a month whi aristides taking naltrexone prior to his 4-day binge drinking prior to admission. The patient denies any [employer] story drug use. 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 LABORATORY DATA AND VITAL SIGNS: Vital signs were reviewed and so were labs by this provider. MEDICATIONS: Reviewed and include Librium 25 mg p.o. q. 8 p.r.n., Ativan 2 mg IV a. 2 p.r.n., Zoloft 25 mg p.o. daily. IMPRESSION: Major depressive disorder, anxiety disorder, alcohol dependency, rule out substance-rylee giuliana mood disorder, rule out substance-induced anxiety disorder, alcohol withdrawal. RECOMMENDATIONS: 1. The medical team should treat patient's alcohol withdrawal. 2. This provider will discontinue Zoloft and start Lexapro at 5 mg daily and this should be continue d after he is discharged. The patient should be followed up with a psychiatrist. Has been given ref errals for psychiatric outpatient management. 3. Naltrexone cannot be started till patient has stopped drinking for at least 2-3 days. Otherwise, the patient can be restarted on this medication upon discharge. Again, the patient should follow up . Has been given referral for psychiatric outpatient followup in this regard. 4. Psychiatry will sign off at this time. The patient's mood symptoms can be managed outpatient. T here is no urgency for this particular consultation at this time. Please manage patient's alcohol wi thdrawal symptoms as per protocol. Marge Kam MD cc: [id number] TT: 04/06/2017 15:12:54 Confirmation # [id number] Dictation # [id number] abhi
== END 2017-04-06 14:05 | disposition home or self-care (01) ==
LOC: ED 19:31 → ERH 04-06 01:42 → INTOOBSV 04-06 01:42 → ERH 04-06 02:28 → 2RSO 04-06 05:40
PROVIDERS: ADMIT Internal Medicine; ATTEND Internal Medicine
DX: F10.239 Alcohol dependence with withdrawal, unspecified (principal); F10.229 Alcohol dependence with intoxication, unspecified; K85.90 Acute pancreatitis without necrosis or infection, unspecified; Y90.8 Blood alcohol level of 240 mg/100 ml or more; F41.9 Anxiety disorder, unspecified; F32.9 Major depressive disorder, single episode, unspecified; Z98.84 Bariatric surgery status
CPT/HCPCS: 36415; 71010; 80053; 80320; 80324; 80329; 80345; 80346; 80349; 80353; 80358; 80361; 81001; 82948; 83690; 83992; 85025; 93005; 96365; 96374; 96375; 96376; 99285; G0378; J2060; J2405; J3411; J7040; J7070

== ENCOUNTER 2017-05-02 02:39 | Emergency (ER) | payer OTHER ==
[2017-05-02 02:39] VITALS: BMI 24.4
[2017-05-02] MEDS ORDERED: Sodium Chloride 0.9% 1,000 ML IV STA (03:10)
[2017-05-02 03:16] VITALS: RESP 20; TEMP 97.2; O2SAT 98
[2017-05-02 03:45] LABS: ADD MANUAL DIFF? NO
--- NOTE | 2017-05-02 03:55 | ED PDOC ---
Arrival/HPI - General Historian: Patient - History of Present Illness Time/Duration: Other (3 days) Symptom Onset: Other (n/a) Symptom Course: Worsening Quality: Cramping Severity Level: 7 Activities at Onset: Other (drinking) <Mayra Lopez - Last Filed: 05/02/17 05:36> <GisellaMelquiades - Last Filed: 05/02/17 06:14> - General Chief Complaint: Abdominal Pain Time Seen by Provider: 05/02/17 02:58 - History of Present Illness Narrative History of Present Illness (Text): 05/02/17 04:13 Patient is a 36 y/o with PMH of anxiety, depression, pancreatitis, h/o gastric bypass and continuous alcohol abuse presenting with abdominal pain and alcohol intoxication. Patient states for the past 3 days, he locked himself up in the house and just drunk alcohol ( wine and beer) for the next 3 days. Patient also also reported during that time he didn't eat as well, had no appetite. Patient has alcohol problem since he was 14 y/o, however recently it has gotten worst. Patient is unable to quantify how much he drinks. Patient states he vomited multiple times yesterday, and at time was vomiting blood. However he decided to drink more alcohol and the vomiting stopped. Patient is currently c/o nausea, denies vomiting today, c/o left lower quadrant abdominal pain. Denies cough, chest pain, sob. (Mayra Lopez) Past Medical History - Provider Review Nursing Documentation Reviewed: Yes - Travel History Have you recently traveled outside [place] w/in the past 3 mons?: No - Infectious Disease Hx of Infectious Diseases: None - Tetanus Immunization Tetanus Immunization: Unknown - Past Medical History Past Medical History: No Previous - Cardiac Hx Cardiac Disorders: Yes Hx Hypertension: Yes - Pulmonary Hx Respiratory Disorders: No Hx Tuberculosis: No - Neurological Hx Neurological Disorder: No Hx Seizures: No - HEENT Hx HEENT Disorder: No - Renal Hx Renal Disorder: Yes Hx Renal Failure: Yes (pt does not confirm/deny) - Endocrine/Metabolic Hx Endocrine Disorders: No - Hematological/Oncological Hx Blood Disorders: No Hx Cancer: No - Integumentary Hx Dermatological Disorder: No - Musculoskeletal/Rheumatological Hx Falls: No - Gastrointestinal Hx Gastrointestinal Disorders: Yes - Genitourinary/Gynecological Hx Genitourinary Disorders: No Hx Sexually Transmitted Diseases: No - Psychiatric Hx Psychophysiologic Disorder: Yes Hx Anxiety: Yes Hx Depression: Yes Hx Substance Use: No - Surgical History Hx Appendectomy: Yes Hx Gastric Bypass Surgery: Yes (2009) Other/Comment: hernia - Anesthesia Hx Anesthesia: Yes Hx Anesthesia Reactions: No Hx Malignant Hyperthermia: No - Suicidal Assessment Feels Threatened In Home Enviroment: No <Mayra Lopez - Last Filed: 05/02/17 05:36> Family/Social History - Physician Review Nursing Documentation Reviewed: Yes Family/Social History: No Known Family HX Smoking Status: Never Smoked Hx Alcohol Use: Yes (heavy drinker.) Frequency of alcohol use: Daily Hx Substance Use: No Hx Substance Use Treatment: No <Mayra Lopez - Last Filed: 05/02/17 05:36> Allergies/Home Meds <Mayra Lopez - Last Filed: 05/02/17 05:36> <Melquiades Obando - Last Filed: 05/02/17 06:14> Allergies/Adverse Reactions: Allergies sesame seed Allergy (Verified 05/02/17 03:11) ANAPHYLAXIS hummus Allergy (Uncoded 05/02/17 03:11) ANAPHYLAXIS Review of Systems - Review of Systems Constitutional: Normal Eyes: Normal ENT: Normal Respiratory: Normal Cardiovascular: Normal Gastrointestinal: Abdominal Pain (llq), Nausea, Appetite Changes. absent: Diarrhea, Vomiting Genitourinary Male: Normal Musculoskeletal: Normal Skin: Normal Neurological: Normal Endocrine: Normal Hemo/Lymphatic: Normal Psychiatric: Depression. absent: Suicidal Ideation <Mayra Lopez - Last Filed: 05/02/17 05:36> Physical Exam Temperature: Afebrile Blood Pressure: Hypertensive Pulse: Tachycardic Respiratory Rate: Normal Appearance: Positive for: Ill-Appearing, Other (toxic) Pain Distress: Moderate Mental Status: Positive for: Alert and Oriented X 3 - Systems Exam Head: Present: Atraumatic, Normocephalic Pupils: Present: PERRL Extroacular Muscles: Present: EOMI Conjunctiva: Present: Normal Mouth: Present: Dry Neck: Present: Normal Range of Motion Respiratory/Chest: Present: Clear to Auscultation, Good Air Exchange, Respiratory Distress. No: Accessory Muscle Use, Wheezes, Rales, Rhonchi Cardiovascular: Present: Regular Rate and Rhythm, Normal S1, S2, Tachycardic. No: Murmurs Abdomen: Present: Tenderness (llq), Normal Bowel Sounds. No: Distention Upper Extremity: Present: Normal Inspection. No: Cyanosis, Edema Lower Extremity: Present: Normal Inspection. No: Edema Neurological: Present: GCS=15, Speech Normal, Gait Normal Skin: Present: Warm, Dry, Rashes, Normal Color Psychiatric: Present: Alert, Oriented x 3, Normal Insight, Normal Concentration <Mayra Lopez - Last Filed: 05/02/17 05:36> Medical Decision Making Re-evaluation Time: 05:10 Reassessment Condition: Improving,but remains with symptoms - Lab Interpretations I have reviewed the lab results: Yes <Mayra Lopez - Last Filed: 05/02/17 05:36> <Melquiades Obando - Last Filed: 05/02/17 06:14> ED Course and Treatment: 05/02/17 04:55 36 y/o with h/o continuous alcohol abuse presenting with alcohol intoxication and abdominal pain/nausea. r/o alcohol withdrawal. Plan: cbc, cmp, ethanol level, lipase zofran for nausea Pepcid for abdominal pain NS bolus and reevaluate and dispo. Discussed with Dr Obando. (Mayra Lopez) 05/02/17 06:13 Patient seen and examined with resident. Abdomen is soft and nontender. Labs are unremarkable. Patient is feeling better after meds and asking to go home. He is fully sober and may be discharged; told to stop etoh use. (Melquiades Obando) - Lab Interpretations Lab Results: 05/02/17 03:33 05/02/17 03:33 Lab Results 05/02/17 03:33: Alcohol, Quantitative 242 H 05/02/17 03:33: Sodium 142, Potassium 4.2, Chloride 97, Carbon Dioxide 27, Anion Gap 22 H, BUN 11, Creatinine 0.9, Est GFR ( Amer) > 60, Est GFR ( Non-Af Amer) > 60, Random Glucose 89, Calcium 9.3, Total Bilirubin 0.8, AST 127 H, ALT 81 H, Alkaline Phosphatase 75, Total Protein 8.6 H, Albumin 4.7, Globulin 3.9, Albumin/Globulin Ratio 1.2, Amylase 125, Lipase 104 05/02/17 03:33: PT 11.4, INR 1.06, APTT 25.5 05/02/17 03:33: WBC 8.4 D, RBC 5.35, Hgb 16.5, Hct 46.9, MCV 87.7, MCH 30.8, MCHC 35.2, RDW 14.3, Plt Count 318, MPV 8.6, Gran % 45.0 L, Lymph % (Auto) 48.0 H, [place] % (Auto) 5.6, Eos % (Auto) 0.8 L, Baso % (Auto) 0.6, Gran # 3.78, Lymph # 4.0 H, [place] # 0.5, Eos # 0.1, Baso # 0.05 - Medication Orders Current Medication Orders: Discontinued Medications Famotidine (Pepcid) 20 mg IVP STAT STA Stop: 05/02/17 03:11 Last Admin: 05/02/17 03:37 Dose: 20 mg Sodium Chloride (Sodium Chloride 0.9%) 1,000 mls @ 999 mls/hr IV .Q1H1M STA Stop: 05/02/17 04:10 Last Admin: 05/02/17 03:38 Dose: 999 mls/hr Metoclopramide HCl (Reglan) 10 mg IVP STAT STA Stop: 05/02/17 04:24 Last Admin: 05/02/17 04:34 Dose: 10 mg Ondansetron HCl (Zofran Inj) 4 mg IVP STAT STA Stop: 05/02/17 03:46 Last Admin: 05/02/17 03:55 Dose: 4 mg - PA / RETARDER OPERATOR / Resident Statement DARLENE has reviewed & agrees with the documentation as recorded. DARLENE has examined the patient and agrees with the treatment plan. <Melquiades Obando - Last Filed: 05/02/17 06:14> Disposition/Present on Arrival - Present on Arrival Any Indicators Present on Arrival: No History of DVT/PE: No History of Uncontrolled Diabetes: No Urinary Catheter: No History of Decub. Ulcer: No History Surgical Site Infection Following: None - Disposition Have Diagnosis and Disposition been Completed?: Yes Disposition Time: 05:15 Patient Plan: Discharge <Mayra Lopez - Last Filed: 05/02/17 05:36> <Melquiades Obando - Last Filed: 05/02/17 06:14> - Disposition Diagnosis: Alcohol intoxication, Gastritis Disposition: HOME/ ROUTINE Condition: GUARDED Discharge Instructions (ExitCare): Gastritis (ED), Alcohol Intoxication (ED) Additional Instructions: Please follow up with pmd stop drinking alcohol go tot he nearest emergency room if you experience chest pain, shortness of breath, or fever. Referrals: [facility] [place] - Follow up with primary
[2017-05-02 04:03] LABS: INR 1.06 (0.93-1.08); PARTIAL THROMBOPLASTIN TIME 25.5 Seconds (23.7-30.8)
[2017-05-02 04:08] LABS: ALB/GLOB RATIO 1.2 (1.1-1.8); ALKALINE PHOSPHATASE 75 U/L (38-133); ALT/SGPT 81 U/L (7-56); AMYLASE 125 U/L (35-125); AST/SGOT 127 U/L (15-59); BILIRUBIN,TOTAL 0.8 mg/dL (0.2-1.3); BLOOD UREA NITROGEN 11 mg/dL (7-21); CALCIUM 9.3 mg/dL (8.4-10.5); CARBON DIOXIDE 27 mmol/L (21-33); CHLORIDE 97 mmol/L (95-110); GFR AFRICAN-AMERICAN > 60; GLUCOSE,RANDOM 89 mg/dL (70-110); LIPASE 104 U/L (23-300); POTASSIUM 4.2 mmol/L (3.6-5.0); SODIUM 142 mmol/L (132-148); TOTAL PROTEIN 8.6 g/dL (5.8-8.3)
[2017-05-02 04:14] LABS: BASO # 0.05 K/mm3 (0.0-2.0); BASO % 0.6 % (0.0-3.0); EOS # 0.1 (0.0-0.7); EOS % 0.8 % (1.5-5.0); GRAN # 3.78 (1.4-6.5); HEMATOCRIT 46.9 % (42.0-52.0); MEAN CELL VOLUME 87.7 fL (80.0-105.0); MEAN CORPUSCULAR HEMOGLOBIN 30.8 pg (25.0-35.0); MEAN CORPUSCULAR HGB CONC 35.2 g/dl (31.0-37.0); MEAN PLATELET VOLUME 8.6 fl (7.0-11.0); MONO # 0.5 (0.1-0.6); MONO % 5.6 % (1.0-6.0); PLATELET COUNT 318 10^3/uL (120.0-450.0); RED CELL DISTRIBUTION WIDTH 14.3 % (11.5-14.5); WHITE BLOOD COUNT 8.4 10^3/ul (4.5-11.0)
[2017-05-02 05:44] VITALS: BP 115/79; PULSE 89
== END 2017-05-02 05:44 | disposition home or self-care (01) ==
LOC: ED 02:39
DX: K29.70 Gastritis, unspecified, without bleeding (principal); F10.129 Alcohol abuse with intoxication, unspecified; Y90.8 Blood alcohol level of 240 mg/100 ml or more
CPT/HCPCS: 80053; 80320; 82150; 83690; 85025; 85610; 85730; 96361; 96374; 96375; 99283; J2405; J2765; J7040

== ENCOUNTER 2017-05-03 12:50 | Emergency (ER) | payer OTHER ==
[2017-05-03 12:50] VITALS: BMI 24.4
[2017-05-03 13:09] VITALS: TEMP 98.1; O2SAT 100
--- NOTE | 2017-05-03 13:34 | ED PDOC ---
Arrival/HPI - General Historian: Patient - General Chief Complaint: Alcohol Ingestion Time Seen by Provider: 05/03/17 12:51 - History of Present Illness Narrative History of Present Illness (Text): 05/03/17 13:26 36yo male with PMHx of pancreatitis, anxiety, depress, alcohol intoxication biba for psych evaluation. Patient was seen here yesterday for abdominal pain. He states he has been drinking alcohol since he was discharged and came to ED because he was us to keep him in the hospital to stop him from drinking. He denies abdominal pain, hallucination, SI/HI, any somatic complaint. (Lucy Fraire) Past Medical History - Provider Review Nursing Documentation Reviewed: Yes - Infectious Disease Hx of Infectious Diseases: None - Tetanus Immunization Tetanus Immunization: Unknown - Past Medical History Past Medical History: No Previous - Cardiac Hx Cardiac Disorders: Yes Hx Hypertension: Yes - Pulmonary Hx Respiratory Disorders: No Hx Tuberculosis: No - Neurological Hx Neurological Disorder: No Hx Seizures: No - HEENT Hx HEENT Disorder: No - Renal Hx Renal Disorder: Yes Hx Renal Failure: Yes (pt does not confirm/deny) - Endocrine/Metabolic Hx Endocrine Disorders: No - Hematological/Oncological Hx Blood Disorders: No Hx Cancer: No - Integumentary Hx Dermatological Disorder: No - Musculoskeletal/Rheumatological Hx Falls: No - Gastrointestinal Hx Gastrointestinal Disorders: Yes - Genitourinary/Gynecological Hx Genitourinary Disorders: No Hx Sexually Transmitted Diseases: No - Psychiatric Hx Psychophysiologic Disorder: Yes Hx Anxiety: Yes Hx Depression: Yes Hx Substance Use: No - Surgical History Hx Appendectomy: Yes Hx Gastric Bypass Surgery: Yes (2009) Other/Comment: hernia - Anesthesia Hx Anesthesia: Yes Hx Anesthesia Reactions: No Hx Malignant Hyperthermia: No - Suicidal Assessment Feels Threatened In Home Enviroment: No Family/Social History - Physician Review Nursing Documentation Reviewed: Yes Family/Social History: Unknown Family HX Smoking Status: Never Smoked Hx Alcohol Use: Yes (heavy drinker.) Hx Substance Use: No Hx Substance Use Treatment: No Allergies/Home Meds Allergies/Adverse Reactions: Allergies sesame seed Allergy (Verified 05/03/17 13:00) ANAPHYLAXIS hummus Allergy (Uncoded 05/03/17 13:00) ANAPHYLAXIS Home Medications: Home Meds Medication Instructions Recorded Confirmed Unobtainable 05/03/17 05/03/17 Review of Systems - Physician Review All systems were reviewed & negative as marked: Yes - Review of Systems Systems not reviewed;Unavailable: Intoxicated Constitutional: Normal Eyes: Normal ENT: Normal Respiratory: Normal Cardiovascular: Normal Gastrointestinal: Normal Genitourinary Male: Normal Musculoskeletal: Normal Skin: Normal Neurological: Normal Endocrine: Normal Hemo/Lymphatic: Normal Psychiatric: Other (Intoxicated) Physical Exam Vital Signs Reviewed: Yes Temperature: Afebrile Blood Pressure: Normal Pulse: Regular Respiratory Rate: Normal Appearance: Positive for: Well-Appearing, Non-Toxic, Comfortable, Other ( Alcohol breathe) Pain Distress: None Mental Status: Positive for: Alert and Oriented X 3 - Systems Exam Head: Present: Atraumatic, Normocephalic Pupils: Present: PERRL Extroacular Muscles: Present: EOMI Conjunctiva: Present: Normal Mouth: Present: Moist Mucous Membranes Neck: Present: Normal Range of Motion Respiratory/Chest: Present: Clear to Auscultation, Good Air Exchange. No: Respiratory Distress, Accessory Muscle Use Cardiovascular: Present: Regular Rate and Rhythm, Normal S1, S2. No: Murmurs Abdomen: Present: Normal Bowel Sounds. No: Tenderness, Distention, Peritoneal Signs Back: Present: Normal Inspection Upper Extremity: Present: Normal Inspection. No: Cyanosis, Edema Lower Extremity: Present: Normal Inspection. No: Edema Neurological: Present: GCS=15, CN II-XII Intact, Speech Normal Skin: Present: Warm, Dry, Normal Color. No: Rashes Psychiatric: Present: Alert, Oriented x 3, Normal Insight, Normal Concentration Medical Decision Making ED Course and Treatment: 05/03/17 18:16 PT was sleeping comfortably in ED. Alcohol level of 382 was noted. Elevated LFt was noted likely secondary to his alcohol intake behavior. He was however, stable with steady gait in ED. He was medically cleared for psych evaluation He was seen in ED by the PES screener. she states that [facility] inpatient detox is full and offered pt list of detox centers he can go to, which he declined. He choose to be DC. He understood that he can come back to the ED at any time he changes his mind. (Yee,Happiness A) I was available for consultation during PA evaluation. The chart was reviewed by me, and I agree with disposition. The documented history was done by the physician used car salesperson. The documented physical exam was done by the physician used car salesperson. The documented procedures were done by the physician used car salesperson.. Jarvis Minor) - Lab Interpretations Lab Results: 05/03/17 13:34 05/03/17 13:34 Lab Results 05/03/17 15:00: Urine Opiates Screen Negative, Urine Methadone Screen Negative, Ur Barbiturates Screen Negative, Ur Phencyclidine Scrn Negative, Ur Amphetamines Screen Negative, U Benzodiazepines Scrn Negative, U Oth Cocaine Metabols Negative, U Cannabinoids Screen Negative 05/03/17 14:00: Urine Color Yellow, Urine Appearance Clear, Urine pH 6.0, Ur Specific [place] 1.010, Urine Protein Negative, Urine Glucose (UA) Negative, Urine Ketones Negative, Urine Blood Moderate H, Urine Nitrate Negative, Urine Bilirubin Negative, Urine Urobilinogen 0.2, Ur Leukocyte Esterase Negative, Urine RBC 0 - 2, Urine WBC 0 - 2, Ur Epithelial Cells 1 - 3, Urine Bacteria Few 05/03/17 13:34: Alcohol, Quantitative 381 H* 05/03/17 13:34: Salicylates < 1 L, Acetaminophen < 10.0 L 05/03/17 13:34: Sodium 146, Potassium 4.0, Chloride 101, Carbon Dioxide 30, Anion Gap 19, BUN 7, Creatinine 0.9, Est GFR ( Amer) > 60, Est GFR (Non- Af Amer) > 60, Random Glucose 95, Calcium 9.1, Total Bilirubin 0.8, AST 117 H, ALT 96 H, Alkaline Phosphatase 70, Total Protein 8.3, Albumin 4.3, Globulin 4.0 , Albumin/Globulin Ratio 1.1 05/03/17 13:34: WBC 5.0 D, RBC 5.05, Hgb 15.5, Hct 44.8, MCV 88.7, MCH 30.7, MCHC 34.6, RDW 14.5, Plt Count 173, MPV 8.9, Neutrophils % (Manual) 26 L, Lymphocytes % (Manual) 62 H, Monocytes % (Manual) 10 H, Eosinophils % (Manual) 2 , Plt Clumps, EDTA Present Disposition/Present on Arrival - Present on Arrival Any Indicators Present on Arrival: No History of DVT/PE: No History of Uncontrolled Diabetes: No Urinary Catheter: No History of Decub. Ulcer: No History Surgical Site Infection Following: None - Disposition Have Diagnosis and Disposition been Completed?: Yes Disposition Time: :35 Patient Plan: Discharge - Disposition Diagnosis: Alcohol intoxication Disposition: HOME/ ROUTINE Condition: STABLE Discharge Instructions (ExitCare): Alcohol Intoxication (ED) Additional Instructions: FOLLOW UP WITH YOUR PRIVATE DOCTOR AND JOIN A DETOX PROGRAM RETURN TO ED FOR ANY NEW SYMPTOMS Referrals: [facility] [Outside] - Follow up with primary
[2017-05-03 13:41] LABS: HEMATOCRIT 44.8 % (42.0-52.0); MEAN CELL VOLUME 88.7 fL (80.0-105.0); MEAN CORPUSCULAR HEMOGLOBIN 30.7 pg (25.0-35.0); MEAN CORPUSCULAR HGB CONC 34.6 g/dl (31.0-37.0); MEAN PLATELET VOLUME 8.9 fl (7.0-11.0); PLATELET COUNT 173 10^3/uL (120.0-450.0); RED CELL DISTRIBUTION WIDTH 14.5 % (11.5-14.5)
[2017-05-03 13:42] LABS: ADD MANUAL DIFF? YES
[2017-05-03 13:53] LABS: ALB/GLOB RATIO 1.1 (1.1-1.8); ALKALINE PHOSPHATASE 70 U/L (38-133); ALT/SGPT 96 U/L (7-56); AST/SGOT 117 U/L (15-59); BILIRUBIN,TOTAL 0.8 mg/dL (0.2-1.3); BLOOD UREA NITROGEN 7 mg/dL (7-21); CALCIUM 9.1 mg/dL (8.4-10.5); CARBON DIOXIDE 30 mmol/L (21-33); CHLORIDE 101 mmol/L (98-107); GFR AFRICAN-AMERICAN > 60; GLUCOSE,RANDOM 95 mg/dL (70-110); SODIUM 146 mmol/L (132-148); TOTAL PROTEIN 8.3 g/dL (5.8-8.3)
[2017-05-03 14:22] LABS: EOSINOPHIL 2 % (0.0-3.0); NEUTROPHIL 26 % (50.0-70.0)
[2017-05-03 14:23] LABS: PLATELET CLUMPS PRESENT
[2017-05-03 14:40] LABS: URINE BILIRUBIN NEGATIVE (NEGATIVE); URINE BLOOD MODERATE (NEGATIVE); URINE GLUCOSE (UA) NEGATIVE (NEGATIVE); URINE KETONE NEGATIVE (NEGATIVE); URINE LEUKOCYTE ESTERASE NEGATIVE Leu/uL (NEGATIVE); URINE PROTEIN NEGATIVE mg/dL (<30 mg/dL); URINE UROBILINOGEN 0.2 E.U./dL (<1 E.U./dL)
[2017-05-03 14:44] LABS: URINE APPEARANCE CLEAR (CLEAR); URINE COLOR YELLOW (YELLOW)
[2017-05-03 14:57] LABS: URINE BACTERIA FEW (NEG); URINE RBC 0 - 2 /hpf (0-2); URINE WBC 0 - 2 /hpf (0-6)
[2017-05-03 15:09] VITALS: PULSE 86
--- NOTE | 2017-05-03 15:52 | CARD ---
APPROVED REPORT EKG Measurement Heart [id number] <Conclusion> Normal sinus rhythm Septal infarct, age undetermined Abnormal ECG
[2017-05-03 17:31] VITALS: BP 124/80; RESP 16
== END 2017-05-03 17:42 | disposition home or self-care (01) ==
LOC: ED 12:50
DX: F10.129 Alcohol abuse with intoxication, unspecified (principal); Y90.8 Blood alcohol level of 240 mg/100 ml or more; I10 Essential (primary) hypertension

== ENCOUNTER 2018-03-04 12:09 | Emergency (ER) | payer MEDICAID, OTHER ==
[2018-03-04 12:10] VITALS: BMI 24.4
--- NOTE | 2018-03-04 12:33 | ED PDOC ---
Arrival/HPI - General Chief Complaint: GI Problem Time Seen by Provider: 03/04/18 12:27 Historian: Patient - History of Present Illness Narrative History of Present Illness (Text): 03/04/18 12:33 A 37 year old male, whose past medical history includes pancreatitis s/p gastric bypass, presents to the emergency department complaining of nausea, vomiting and diarrhea for 2 days. Patient notes he has been unable to tolerate any PO intake. Patient reports his symptoms began shortly after having take out food. Patient denies any fever, chills, chest pain, shortness of breath or any other complaints. Time/Duration: Other (2 days) Symptom Course: Unchanged Context: Home Past Medical History - Provider Review Nursing Documentation Reviewed: Yes - Infectious Disease Hx of Infectious Diseases: None - Tetanus Immunization Tetanus Immunization: Unknown - Past Medical History Past Medical History: No Previous - Cardiac Hx Hypertension: Yes - Pulmonary Hx Respiratory Disorders: No - Neurological Hx Seizures: Yes - HEENT Hx HEENT Disorder: No - Renal Hx Renal Disorder: No - Endocrine/Metabolic Hx Endocrine Disorders: No - Hematological/Oncological Hx Blood Disorders: No - Integumentary Hx Dermatological Disorder: No - Musculoskeletal/Rheumatological Hx Musculoskeletal Disorders: No Hx Falls: No - Gastrointestinal Hx Gastrointestinal Disorders: No - Genitourinary/Gynecological Hx Genitourinary Disorders: No - Psychiatric Hx Depression: Yes Hx Substance Use: No - Surgical History Hx Appendectomy: Yes - Anesthesia Hx Anesthesia: Yes Hx Anesthesia Reactions: No Hx Malignant Hyperthermia: No - Suicidal Assessment Feels Threatened In Home Enviroment: No Family/Social History - Physician Review Nursing Documentation Reviewed: Yes Family/Social History: No Known Family HX Smoking Status: Never Smoked Hx Alcohol Use: Yes Hx Substance Use: No Hx Substance Use Treatment: No Allergies/Home Meds Allergies/Adverse Reactions: Allergies sesame seed Allergy (Verified 03/04/18 12:26) ANAPHYLAXIS hummus Allergy (Uncoded 05/05/17 14:13) ANAPHYLAXIS Review of Systems - Physician Review All systems were reviewed & negative as marked: Yes - Review of Systems Constitutional: absent: Fevers, Night Sweats Respiratory: absent: SOB Cardiovascular: absent: Chest Pain Gastrointestinal: Diarrhea, Nausea, Vomiting Physical Exam Vital Signs Reviewed: Yes Vital Signs Temp Pulse Resp BP Pulse Ox 03/04/18 15:27 68 18 114/75 100 03/04/18 12:23 98.8 F 72 16 112/78 98 Temperature: Afebrile Blood Pressure: Normal Pulse: Regular Respiratory Rate: Normal Appearance: Positive for: Well-Appearing, Non-Toxic, Comfortable Pain Distress: None Mental Status: Positive for: Alert and Oriented X 3 - Systems Exam Head: Present: Atraumatic, Normocephalic Pupils: Present: PERRL Extroacular Muscles: Present: EOMI Conjunctiva: Present: Normal Mouth: Present: Moist Mucous Membranes Neck: Present: Normal Range of Motion Respiratory/Chest: Present: Clear to Auscultation, Good Air Exchange. No: Respiratory Distress, Accessory Muscle Use Cardiovascular: Present: Regular Rate and Rhythm, Normal S1, S2. No: Murmurs Abdomen: Present: Scars (multiple scars over abdomen, large deformed scar noted to left lateral abdomen). No: Tenderness, Distention, Peritoneal Signs Back: Present: Normal Inspection Upper Extremity: Present: Normal Inspection. No: Cyanosis, Edema Lower Extremity: Present: Normal Inspection. No: Edema Neurological: Present: GCS=15, CN II-XII Intact, Speech Normal Skin: Present: Warm, Dry, Normal Color. No: Rashes Psychiatric: Present: Alert, Oriented x 3, Normal Insight, Normal Concentration Medical Decision Making ED Course and Treatment: 03/04/18 12:32 Impression: A 37 year old male with nausea, vomiting and diarrhea Plan: -- Labs -- Urinalysis -- Toradol, Zofran and IV fluids -- Reassess and disposition Progress Notes: - Lab Interpretations Lab Results: 03/04/18 13:00 03/04/18 13:00 Lab Results 03/04/18 16:24: Urine Color Yellow, Urine Appearance Clear, Urine pH 6.5, Ur Specific [place] 1.020, Urine Protein Trace H, Urine Glucose (UA) Negative, Urine Ketones 40 H, Urine Blood Trace-intact H, Urine Nitrate Negative, Urine Bilirubin Small H, Urine Urobilinogen 0.2, Ur Leukocyte Esterase Negative, Urine RBC 1 - 3, Urine WBC 5 - 10, Ur Epithelial Cells 4 - 5, Urine Bacteria Few 03/04/18 13:00: Sodium 140, Potassium 3.9, Chloride 104, Carbon Dioxide 26, Anion Gap 14, BUN 11, Creatinine 0.9, Est GFR ( Amer) > 60, Est GFR (Non- Af Amer) > 60, Random Glucose 98, Calcium 9.3, Total Bilirubin 0.5, AST 28, ALT 36, Alkaline Phosphatase 51, Total Protein 7.3, Albumin 4.2, Globulin 3.1, Albumin/Globulin Ratio 1.3, Lipase 74 03/04/18 13:00: PT 13.0 H, INR 1.13 H 03/04/18 13:00: WBC 4.5, RBC 4.88, Hgb 14.1, Hct 41.7 L, MCV 85.5, MCH 28.9, MCHC 33.8, RDW 13.0, Plt Count 245, MPV 8.8, Gran % 55.2, Lymph % (Auto) 38.6 H , [place] % (Auto) 4.0, Eos % (Auto) 1.5, Baso % (Auto) 0.7, Gran # 2.50, Lymph # ( Auto) 1.8, [place] # (Auto) 0.2, Eos # (Auto) 0.1, Baso # (Auto) 0.03 I have reviewed the lab results: Yes - Medication Orders Current Medication Orders: Sodium Chloride (Sodium Chloride 0.9%) 2,000 mls @ 100 mls/hr IV .Q20H ANEESH Last Admin: 03/04/18 12:41 Dose: 100 mls/hr eMAR Start Stop Document 03/04/18 12:41 ANTONIO (Rec: 03/04/18 12:41 ANTONIO [id number]) Intravenous Solution Start Date 03/04/18 Start Time 12:41 End Date 03/04/18 Discontinued Medications Ketorolac Tromethamine (Toradol) 30 mg IVP STAT STA Stop: 03/04/18 12:33 Last Admin: 03/04/18 12:45 Dose: 30 mg MAR Pain Assessment Document 03/04/18 12:45 ANTONIO (Rec: 03/04/18 12:55 ANTONIO [id number]) Pain Reassessment Is this a pain reassessment? Yes Presence of Pain Presence of Pain Yes Pain Scale Used Pain Scale Used Numeric Location Pain Location Body Site Abdomen Description Description Cramping Acceptable Level of Pain 3 IVP Administration Document 03/04/18 12:45 ANTONIO (Rec: 03/04/18 12:55 ANTONIO [id number]) Charges for Administration # of IVP Administrations 1 Ondansetron HCl (Zofran Inj) 8 mg IVP STAT STA Stop: 03/04/18 12:33 Last Admin: 03/04/18 12:42 Dose: 8 mg IVP Administration Document 03/04/18 12:42 ANTONIO (Rec: 03/04/18 12:42 ANTONIO [id number]) Charges for Administration # of IVP Administrations 1 - Scribe Statement The provider has reviewed the documentation as recorded by the Scribe Tram Williamson Provider Scribe Attestation: All medical record entries made by the Scribe were at my direction and personally dictated by me. I have reviewed the chart and agree that the record accurately reflects my personal performance of the history, physical exam, medical decision making, and the department course for this patient. I have also personally directed, reviewed, and agree with the discharge instructions and disposition. Disposition/Present on Arrival - Present on Arrival Any Indicators Present on Arrival: No History of DVT/PE: No History of Uncontrolled Diabetes: No Urinary Catheter: No History of Decub. Ulcer: No History Surgical Site Infection Following: None - Disposition Have Diagnosis and Disposition been Completed?: Yes Diagnosis: Gastroenteritis, Dehydration Disposition: HOME/ ROUTINE Disposition Time: 16:51 Patient Plan: Discharge Condition: GOOD Discharge Instructions (ExitCare): Gastroenteritis (ED) Additional Instructions: Darrell - Sorry that you were so sick. Use the zofran odt for nausea or vomiting. It dissolves on your tongue and is absorbed in your mouth so it will work even if you vomit. You were a bit dehydrated so make sure you get at least 5 20 ounce bottles of water each day. Return to us if problems. Follow up with your doctor. Perez- Dr. Joshua Overton Forms: [employer] (Portuguese)
[2018-03-04] MEDS ORDERED: Sodium Chloride 0.9% 2,000 ML IV SCH (12:45)
[2018-03-04 13:09] LABS: BASO # 0.03 K/mm3 (0.0-2.0); BASO % 0.7 % (0.0-3.0); EOS # 0.1 (0.0-0.7); EOS % 1.5 % (1.5-5.0); GRAN # 2.5 (1.4-6.5); GRAN % 55.2 % (50.0-68.0); HEMOGLOBIN 14.1 g/dL (14.0-18.0); LYMPH # 1.8 (1.2-3.4); LYMPH % 38.6 % (22.0-35.0); MEAN CELL VOLUME 85.5 fl (80.0-105.0); MEAN CORPUSCULAR HEMOGLOBIN 28.9 pg (25.0-35.0); MEAN CORPUSCULAR HGB CONC 33.8 g/dl (31.0-37.0); MEAN PLATELET VOLUME 8.8 fl (7.0-11.0); MONO # 0.2 (0.1-0.6); RBC 4.88 10^6/uL (3.5-6.1); WHITE BLOOD COUNT 4.5 10^3/ul (4.5-11.0)
[2018-03-04 13:17] LABS: INR 1.13 (0.93-1.08)
[2018-03-04 13:18] LABS: ALB/GLOB RATIO 1.3 (1.1-1.8); ALBUMIN 4.2 g/dL (3.0-4.8); ALT/SGPT 36 U/L (7-56); AST/SGOT 28 U/L (17-59); BLOOD UREA NITROGEN 11 mg/dL (7-21); CALCIUM 9.3 mg/dL (8.4-10.5); GFR AFRICAN-AMERICAN > 60; GFR NON-AFRICAN AMERICAN > 60; LIPASE 74 U/L (23-300)
[2018-03-04 16:39] LABS: PH,URINE 6.5 (4.7-8.0); URINE BILIRUBIN SMALL (NEGATIVE); URINE BLOOD TRACE-INTACT (NEGATIVE); URINE GLUCOSE (UA) NEGATIVE (NEGATIVE); URINE LEUKOCYTE ESTERASE NEGATIVE Leu/uL (NEGATIVE); URINE PROTEIN TRACE mg/dL (<30 mg/dL); URINE UROBILINOGEN 0.2 E.U./dL (<1 E.U./dL)
[2018-03-04 16:43] LABS: URINE APPEARANCE CLEAR (CLEAR); URINE COLOR YELLOW (YELLOW)
[2018-03-04 16:48] LABS: URINE BACTERIA FEW (NEG)
[2018-03-04] MEDS ORDERED: Sodium Chloride 0.9% 1,000 ML IV STA (16:48)
[2018-03-04 18:00] VITALS: BP 118/79; PULSE 80; RESP 16; TEMP 98; O2SAT 99
== END 2018-03-04 17:59 | disposition home or self-care (01) ==
LOC: ED 12:09
DX: K52.9 Noninfective gastroenteritis and colitis, unspecified (principal); E86.0 Dehydration; I10 Essential (primary) hypertension; Z98.84 Bariatric surgery status
CPT/HCPCS: 80053; 81001; 83690; 85025; 85610; 87086; 96361; 96374; 96375; 99283; J1885; J2405; J7040

== ENCOUNTER 2019-04-15 13:24 | Emergency (ER) | payer MEDICAID, OTHER ==
[2019-04-15 13:31] VITALS: BMI 28.8
[2019-04-15 13:35] VITALS: BP 134/89; PULSE 71; RESP 16; TEMP 97.7; O2SAT 97
--- NOTE | 2019-04-15 14:28 | ED PDOC ---
Arrival/HPI - General Chief Complaint: Alcohol Ingestion Time Seen by Provider: 04/15/19 13:26 Historian: Patient - History of Present Illness Narrative History of Present Illness (Text): 04/15/19 16:16 38 y/o male with PMH of ETOH abuse presents to the ED biba from home for evaluation of alcohol intoxication. Pt is requesting detox. Admits to alcohol use today. (+) ETOH on breath, last drink just TI[employer]. Arousable to voice. Recently discharged from [facility] detox program on 03/17/19. Pt has no physical complaints at this time. Denies fall/trauma, SI, HI, fever, chills, abdominal pain, chest pain, SOB, nausea, vomiting, diarrhea, back pain, neck pain, or any other associated symptoms. ROS and HPI limited secondary to intoxication. Past Medical History - Provider Review Nursing Documentation Reviewed: Yes - Infectious Disease Hx of Infectious Diseases: None - Tetanus Immunization Tetanus Immunization: Unknown - Past Medical History Past Medical History: No Previous - Cardiac Hx Cardiac Disorders: Yes Hx Hypertension: Yes - Pulmonary Hx Respiratory Disorders: No - Neurological Hx Neurological Disorder: Yes Hx Seizures: Yes - HEENT Hx HEENT Disorder: No - Renal Hx Renal Disorder: No - Endocrine/Metabolic Hx Endocrine Disorders: No - Hematological/Oncological Hx Blood Disorders: No - Integumentary Hx Dermatological Disorder: No - Musculoskeletal/Rheumatological Hx Musculoskeletal Disorders: No Hx Falls: Yes (While intoxicated, recent fall reported) - Gastrointestinal Hx Gastrointestinal Disorders: No - Genitourinary/Gynecological Hx Genitourinary Disorders: No Hx Sexually Transmitted Diseases: No - Psychiatric Hx Psychophysiologic Disorder: Yes Hx Anxiety: Yes Hx Depression: Yes Hx Substance Use: Yes - Surgical History Hx Appendectomy: Yes - Anesthesia Hx Anesthesia: Yes Hx Anesthesia Reactions: No Hx Malignant Hyperthermia: No - Suicidal Assessment Feels Threatened In Home Enviroment: No Family/Social History - Physician Review Nursing Documentation Reviewed: Yes Family/Social History: No Known Family HX Smoking Status: Never Smoked Hx Alcohol Use: Yes Frequency of alcohol use: Daily Hx Substance Use: Yes Hx Substance Use Treatment: No Allergies/Home Meds Allergies/Adverse Reactions: Allergies sesame seed Allergy (Verified 03/13/19 19:42) ANAPHYLAXIS hummus Allergy (Uncoded 03/13/19 19:42) ANAPHYLAXIS Review of Systems - Review of Systems Systems not reviewed;Unavailable: Intoxicated Constitutional: Normal. absent: Fevers Eyes: Normal. absent: Vision Changes ENT: Normal. absent: Sore Throat, Epistaxis, Sinus Congestion Respiratory: Normal. absent: SOB, Cough Cardiovascular: Normal. absent: Chest Pain, Palpitations Gastrointestinal: Normal. absent: Abdominal Pain, Nausea, Vomiting Genitourinary Male: Normal. absent: Dysuria, Frequency Musculoskeletal: Normal. absent: Back Pain, Neck Pain Skin: Normal. absent: Rash Neurological: Normal. absent: Headache Physical Exam - Physical Exam Physical Exam Limitations: Intoxication Vital Signs Temp Pulse Resp BP Pulse Ox 04/15/19 13:24 97.7 F 71 16 134/89 97 Temperature: Afebrile Blood Pressure: Normal Pulse: Regular Respiratory Rate: Normal Appearance: Positive for: Non-Toxic, Unkept Pain Distress: None Mental Status: Positive for: other (Intoxicated) Finger Stick Blood Glucose: 90 - Systems Exam Head: Present: Atraumatic, Normocephalic Pupils: Present: PERRL Extroacular Muscles: Present: EOMI Conjunctiva: Present: Normal Mouth: Present: Moist Mucous Membranes Nose (External): Present: Atraumatic Nose (Internal): Present: Normal Inspection Neck: Present: Normal Range of Motion Respiratory/Chest: Present: Clear to Auscultation, Good Air Exchange. No: Respiratory Distress, Accessory Muscle Use Cardiovascular: Present: Regular Rate and Rhythm, Normal S1, S2, Peripheal Pulses Present Abdomen: No: Tenderness Upper Extremity: Present: Normal Inspection, Normal ROM. No: Cyanosis, Edema Lower Extremity: Present: Normal Inspection, Normal ROM. No: Edema Skin: Present: Warm, Dry, Normal Color. No: Rashes Psychiatric: Present: Intoxicated Medical Decision Making ED Course and Treatment: Initial Plan: * Fingerstick * Reassess and Disposition Fingerstick wnl 14:32 Spoke with Esperanza PES worker who states that because pt is within 30 days of discharge from [facility] detox, he is not eligible for readmission to detox. She will call to add pt to the waiting list. Spoke with patient and informed him of discussion. Pt verbalized understanding, states he would just like to rest until he is clinically sober. Continues to have no physical complaints. No tremors noted. Vitals stable 16:45 Pt much more alert, awake, speaking in full sentences. Able to ambulate without difficulty or ataxia. No tremors or vomiting, No physical complaints. Vitals stable. Pt states he still wants to rest. Talking on his cellphone with family member. Spoke with patient a second time and informed him of ineligibility for detox program until April 17. He is instructed to call the program at that time. Pt again verbalized understanding. 17:15 Alerted by nursing staff that patient eloped from ED. Pt has no IV line in place. Disposition/Present on Arrival - Present on Arrival Any Indicators Present on Arrival: No History of DVT/PE: No History of Uncontrolled Diabetes: No Urinary Catheter: No History of Decub. Ulcer: No History Surgical Site Infection Following: None - Disposition Have Diagnosis and Disposition been Completed?: No Diagnosis: Alcohol intoxication Disposition: ELOPEMENT - ER ONLY Disposition Time: 17:15 Condition: UNKNOWN
== END 2019-04-15 18:01 | disposition left against medical advice (07) ==
LOC: ED 13:24
DX: F10.129 Alcohol abuse with intoxication, unspecified (principal); I10 Essential (primary) hypertension